=== PATIENT | female | born 1950 | race Caucasian/White ===

== ENCOUNTER 2018-07-12 13:25 | Inpatient (IN) | payer MEDICARE, SELFPAY ==
[2018-07-12] VITALS (7 sets, daily range): BP systolic 124–134; BP diastolic 66–71; PULSE 98–119; RESP 16–18; TEMP 37.1–39.2; O2SAT 98–100; BMI 25.9; BMI 26.4
--- NOTE | 2018-07-12 13:35 | CT_ITS ---
STUDY: CT ABDOMEN AND PELVIS WITH CONTRAST REASON FOR EXAM: Female, 68 years old. Dehydration. Diarrhea and fever. The patient is on chemotherapy. RADIATION DOSAGE (If Supplied By Facility): CTDIvol = ( 10.37 ) mGy, DLP = ( 602.99 ) mGycm TECHNIQUE: Transaxial images were obtained from the dome of the diaphragm to the symphysis pubis without oral contrast. 100 ml of Isovue 300 contrast was administered. Sagittal and coronal images were reconstructed. Individualized dose optimization techniques were used for this CT. COMPARISON: None. FINDINGS: The visualized lung bases are unremarkable. The visualized portions of the heart are within normal limits. There is decreased attenuation of the liver consistent with steatosis. There is a 1.1 cm x 0.7 cm rounded enhancing nodule in the superior lateral portion of the right lobe of the liver. This may represent a vascular malformation. The patient is status post cholecystectomy. A biliary stent is seen in the common bile duct down to its insertion into the duodenum. There is evidence of a pneumobilia within the hepatic ducts more prominent on the left side. There is mild splenomegaly. There is diffuse atrophy of the pancreas. There is no pancreatic ductal dilatation. Normal bilateral adrenal glands. Normal right kidney. Normal left kidney. Moderate sized hiatal hernia. Normal small intestine. There is mural thickening of the rectosigmoid colon down to the rectum. Colitis should be ruled out. The appendix is visualized and appears normal. Normal abdominal aorta. Normal inferior vena cava. Normal retroperitoneum. Normal urinary bladder. Small benign-appearing bilateral inguinal lymph nodes. There is a small umbilical hernia containing fat. There are degenerative changes of the visualized lumbar spine. CT/Abdomen/Pelvis W IV Cont ONLY IMPRESSION: Biliary stent in place with the pneumobilia. Diffuse fatty infiltration. Findings suggestive of a 0.7 cm x 1.1 cm rounded enhancing nodule in the right lobe of the liver as described most likely representing a vascular malformation. Diffuse atrophy of the pancreas with the dilated pancreatic duct. Findings suggestive of colitis of the rectosigmoid colon. Electronically Signed: Som Jamison MD at 15:25 EDT Tel [phone], Service support ,
--- NOTE | 2018-07-12 13:38 | ED.DCSUM_ITS ---
- ER Visit Summary Date of Service: 07/12/18 Chief Complaint: Fever, dehydration History of Present Illness: The patient is a 68 F with a recent diagnosis of pancreatic cancer who is status post her second chemotherapy presents to the emergency department with multiple complaints. Patient states that she is just felt lethargic since her last chemo. She was started on olanzapine and Ativan. She felt that that may been making it so she stopped taking her olanzapine last night, but she states that she does not feel herself. She has had a lot of abdominal cramping over the past 3 days with loose watery diarrhea. She is having 3 or 4 episodes a day. She states over the past 24 hours, the pain is mi grated to right lower quadrant with increasing cramping. She did have a fever today. She is unsure if she is neutropenic. The patient has had diverticulitis before and actually required a partial colectomy. Physical Examination: Vital signs reviewed General: Well-nourished, well-developed Head: Normocephalic, atraumatic Eyes: Pupils equal and reactive, extraocular muscles intact Neck, supple, no lymphadenopathy Heart: Regular rate and rhythm Respiratory: No distress, clear bilaterally Abdomen: Soft, mildly tender in the right lower quadrant without rebound or guarding, nondistended, no peritoneal signs Back: Nontender Extremities: Nontender, no edema, no cords Skin: Normal color no rash Neuro: Alert and oriented, no focal or lateralizing deficits Test Results: [] Emergency Department Course and Treatment: The patient presents with fever and tachycardia. She just completed her second round of chemotherapy 1 week ago. She has had diarrhea and does have abdominal tenderness evaluation. IV was established. Blood cultures were obtained. Screening labs do demonstrate pancytopenia with a neutrophil count of 800. The patient is a neutropenic with fever. Blood cultures were obtained. She was started on meropenem. Patient underwent CT of the abdomen and pelvis which does show colitis of the descending colon. I do feel this is likely the cause of her fever and in light of her immunosuppression, I do for the patient requires admission. She does have a lactic acidosis of 3.2. She was fluid resuscitated. She had marked improvement of her pain and was resting comfortably. She has not been hypotensive. The patient was discussed with the hospitalist and will be admitted. Treatment Plan: [] Disposition: 1. Admission Impression: 1. Neutropenic fever 2. Colitis 3. Sepsis This note was generated with [employer] dictation software. It may contain incorrect words, spelling, and punctuation that were not noted in review of the chart prior to signing ED Disposition - Plan for ED Patient: Chief Complaint: Diarrhea Referrals: Town Doctor,Out of [NON-STAFF] -
[2018-07-12] MEDS: Morphine 4 MG/ML Syringe IV (14:00)
[2018-07-12] MEDS: 0.9% Normal Saline 1,000 ML 1000 ML IV (14:00)
[2018-07-12 14:11] LABS: Absolute Lymphocyte Count 0.48 X10^3/ul (0.83-4.51); Absolute Neutrophil Count 0.3 X10^3/uL (2.0-7.7); Basophil# 0.01 X10^3/uL; Basophil% 1.2 % (0-1); Eosinophil# 0.01 X10^3/uL; Eosinophils% 1.2 % (0-5); Hematocrit 28.6 % (37-47); Hemoglobin 9.8 g/dl (12.0-15.0); Lymphocyte # 0.48 X10^3/ul (4.0); Lymphocyte % 57.1 % (19-41); Mean Corp Hgb Conc 34.3 g/gl (32-36); Mean Corpuscular Hgb 31.3 pg (27.0-32.0); Mean Corpuscular Volume 91.4 fL (81-99); Mean Platelet Vol. 10.2 fl (6.2-12.0); Monocyte# 0.05 X10^3/uL; Neutrophil # 0.29 X10^3/uL (2.7-7.7); Neutrophil % 34.5 % (47-70); Platelet Count 80 K/mm3 (150-450); RBC Distribution Width CV 13.8 % (11.6-14.6); RBC Distribution Width SD 45.1 fl (35.1-43.9); Red Blood Count 3.13 M/mm3 (4.2-5.4)
[2018-07-12 14:16] LABS: Differential Indicated SCAN CRITERIA MET; POSITIVE COUNT YES; POSITIVE DIFFERENTIAL YES; POSITIVE MORPHOLOGY YES; White Blood Count 0.8 K/mm3 (4.4-11.0)
--- NOTE | 2018-07-12 14:21 | ED.RN ---
MD AND PRIMARY RN NOTIFIED OF CRITICAL WBC VALUE CALLED FROM LAB.
[2018-07-12 14:23] LABS: AST(SGOT) 21 U/L (15-37); Alanine Aminotransfer ALT/SGPT 41 U/L (13-56); Alkaline Phosphatase 102 U/L (45-117); Anion Gap 9 (5-15); BUN 7 mg/dL (7-18); BUN/Creat Ratio 9.2 RATIO (10-20); Calcium,Total 7.7 mg/dL (8.5-10.1); Chloride 101 mmol/L (98-107); Creatinine, Serum 0.76 mg/dL (0.55-1.02); EST Glomerular Filtration Rate 80 mL/min (>60); Est Glom Filt Rate - Afr Amer 96 mL/min (>60); Globulin 2.9 g/dL (2.2-4.2); Glucose 123 mg/dL (74-106); Potassium 3.7 mmol/L (3.5-5.1); Protein, Total 5.9 g/dL (6.4-8.2); Sodium Level 133 mmol/L (136-145)
[2018-07-12 14:36] LABS: Lactic Acid 3.2 mmol/L (0.4-2.0)
--- NOTE | 2018-07-12 14:36 | ED.RN ---
SOLA FROM LAB CALLED WITH LACTIC ACID OF 3.2. NOTE LEFT FOR DR. TRAMMELL.
[2018-07-12 15:02] LABS: Mucous, Urine 0 SEEN /hpf (<or=2+); Squamous Epithelial Cells - UA 0 SEEN /hpf (5-10); White Blood Cells 0 SEEN /hpf (0-5)
[2018-07-12 15:03] LABS: Color, Urine Yellow (Yellow); Glucose, Dipstick Normal (Normal); Ketone-Dipstick Negative (Negative); Leukocyte Esterase-Dipstick 25 /ul (Negative); Nitrite-Dipstick Negative (Negative); Occult Blood-Urine 10 /ul (Negative); Protein-Dipstick Negative (Negative); Urine Bilirubin Dipstick Negative (Negative); Urine Clarity Clear (Clear); Urine Urobilinogen Normal (Normal)
[2018-07-12 15:09] LABS: Bacteria RARE /hpf (None Seen); Red Blood Cells-Urine 0-5 SEEN /hpf (0-5)
[2018-07-12] MEDS: 0.9% Normal Saline 1,000 ML 999 ML IV (15:17)
--- NOTE | 2018-07-12 15:32 | HP.PCM_ITS ---
Problem List (1) Fever Status: Acute (2) Diarrhea Status: Acute History of Present Illness Date of Admission: 07/12/18 Chief Complaint: fever, diarrhea The patient is a 68 year old F with a history of recently diagnosed pancreatic cancer status post pancreatic stent placement, diverticulosis s/p colectomy (12 inches of her colon removed), and hypertension. She is admitted by the ED on 07/12/2018 with complaint of fever, lethargy and diarrhea for couple of days duration. History was taken from patient and her and sons. According to them, diarrhea started about a week ago after she had her first chemotherapy session. It gradually got better and still became formed. However diarrhea started again last night and early this morning and was associated with scant blood on wiping himself. She was also noted to be febrile with has been seen temperature went up to a peak of around 101 Fahrenheit. They therefore decided coming to the ED. She also admitted to lethargy, but denied a cough, chest pain, or vomiting. Patient has a history of reflux and states she has been anorexic of late. She also had abdominal cramping with the diarrhea and states that is now mainly in the right lower quadrant. Temperature was 99.2 Fahrenheit, blood pressure was 124/71, pulse rate was 98 and respiratory rate was 17. Labs in the ED showed sodium of 133, lactic acid of 3.2, white cell count of 0.8 with absolute neutrophil count of 0.3. CT abdomen done in the ED showed biliary tent in place with pneumobilia and rectosigmoid colitis. She was started on IV meropenem in the ED and has been admitted for neutropenic fever and colitis. [] Past Medical History Allergies Penicillins [PCN] Allergy (Verified 07/12/18 13:29) Hives Home Medications: Ambulatory Orders Medication Instructions Recorded Cholecalciferol (Vitamin D3) 4,000 unit PO DAILY 07/12/18 [D3-2000] Lorazepam [Ativan] 1 mg PO Q8H PRN PRN 07/12/18 Olanzapine 10 mg PO QHS 07/12/18 Ondansetron [Zofran] 8 mg PO Q8H PRN PRN 07/12/18 Oxycodone HCl/Acetaminophen 1 - 2 tablet PO Q6H PRN PRN 07/12/18 [Percocet 5/325] Pantoprazole Sodium [Protonix] 40 mg PO BID 07/12/18 Smooth Eye Drops 1 drop EACH EYE DAILY 07/12/18 Surgical History: cholecystectomy, - - pancreatic stent placement Psychiatric History: No pertinent psych hx 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 Denies: Night Sweats Eyes: Reports: Blurred vision HEENT: Denies: Head Aches, Sinus Congestion, Sinus Drainage Cardiovascular: Denies: Chest Pain, Palpitations Respiratory: Denies: Cough, Shortness of Breath, Shortness of breath at rest, Shortness of breath upon exertion, Sputum production, Wheezing Gastrointestinal: Reports: Diarrhea, Dyspepsia, Hematochezia - scant blood on wiping herself, Nausea. Denies: Constipation, Melena, Vomiting Genitourinary: Denies: Dysuria Musculoskeletal: Denies: Joint Pain, Joint Tenderness Skin: Denies: Rash, Wounds Neurological: Denies: Numbness, Tingling, Focal weakness Psychiatric: Denies: Anxiety, Depression, Homicidal Ideations, Suicidal Ideations Hematologic/ Lymphatic: Denies: Easy Bruising, Easy Bleeding VTE Information - Inpt Only VTE Present on Admission: No VTE Mechan Device Prophylaxis: SCD's VTE Pharm Prophylaxis ordered?: No Reason prophylaxis not ordered:: Medical Contraindication - rectal bleeding due to diarrhea Patient Problems: Active and Suspected Problems Fever (Acute) Diarrhea (Acute) - Physical Exam General: Alert, Oriented x3, Cooperative, No apparent distress, Lethargic HEENT: Atraumatic, PERRLA, EOMI, Normocephalic Oral: Dry Mucosa Neck: Supple, No JVD, Negative Carotid Bruits Lungs: Clear to auscultation, Normal air movement, No rhonchi, No wheeze, No rales Cardiovascular: Regular rate, Regular Rhythm, Normal S1, Normal S2, No murmurs Abdomen: Bowel Sounds Present, Soft, Non Tender, Non-Distended, No Hepato- splenomegaly Extremities: No clubbing, No cyanosis, No edema, Capillary Refill Less than 3 Seconds Skin: No rashes, No breakdown Musculoskeletal: No Tenderness to Palpation of Joints or Extremities Lymphatic: No Cervical, Supraclavicular, or Inguinal Adenopathy Neurological: Cranial nerves II-XII grossly intact, Motor Exam 5/5 strength throughout Psych/Mental Status: Normal Affect, Appropriate, Alert and oriented to time, p lace, person, mood and affect Vital Signs Temp Pulse Resp BP Pulse Ox 99.2 F H 119 H 16 134/67 H 100 07/12/18 13:26 07/12/18 13:26 07/12/18 13:26 07/12/18 13:26 07/12/18 13:26 Weight: 133 lb Body Mass Index (BMI) 25.9 Laboratory Tests Past 24 Hrs 07/12/18 07/12/18 07/12/18 14:00 14:00 14:00 WBC 0.8 L* RBC 3.13 L Hgb 9.8 L Hct 28.6 L MCV 91.4 MCH 31.3 MCHC 34.3 RDW 13.8 RDW Differential 45.1 H Plt Count 80 L MPV 10.2 Immature Gran % (Auto) 0.000 Neut % (Auto) 34.5 L Lymph % (Auto) 57.1 H [place] % (Auto) 6.0 Eos % (Auto) 1.2 Baso % (Auto) 1.2 H Absolute Neuts (auto) 0.3 L Absolute Lymphs (auto) 0.48 L Total Counted Not Reportable Differential Comment COMMENT Diff Path Review May foll Sodium 133 L Potassium 3.7 Chloride 101 Carbon Dioxide 23.0 Anion Gap 9 BUN 7 Creatinine 0.76 Estim Creat Clear Calc 37.60 Est GFR (MDRD) Af Amer 96 Est GFR (MDRD) Non-Af 80 BUN/Creatinine Ratio 9.2 L Glucose 123 H Lactic Acid 3.2 H Calcium 7.7 L Total Bilirubin 0.60 AST 21 ALT 41 Alkaline Phosphatase 102 Total Protein 5.9 L Albumin 3.0 L Globulin 2.9 Albumin/Globulin Ratio 1.0 Urine Color Urine Clarity Urine pH Ur Specific [place] Urine Protein Urine Glucose (UA) Urine Ketones Urine Occult Blood Urine Nitrite Urine Bilirubin Urine Urobilinogen Ur Leukocyte Esterase Urine RBC Urine WBC Ur Squamous Epith Cells Urine Bacteria Urine Mucus 07/12/18 14:55 WBC RBC Hgb Hct MCV MCH MCHC RDW RDW Differential Plt Count MPV Immature Gran % (Auto) Neut % (Auto) Lymph % (Auto) [place] % (Auto) Eos % (Auto) Baso % (Auto) Absolute Neuts (auto) Absolute Lymphs (auto) Total Counted Differential Comment Diff Path Review Sodium Potassium Chloride Carbon Dioxide Anion Gap BUN Creatinine Estim Creat Clear Calc Est GFR (MDRD) Af Amer Est GFR (MDRD) Non-Af BUN/Creatinine Ratio Glucose Lactic Acid Calcium Total Bilirubin AST ALT Alkaline Phosphatase Total Protein Albumin Globulin Albumin/Globulin Ratio Urine Color Yellow Urine Clarity Clear Urine pH 7.0 Ur Specific [place] 1.010 Urine Protein Negative Urine Glucose (UA) Normal Urine Ketones Negative Urine Occult Blood 10 H Urine Nitrite Negative Urine Bilirubin Negative Urine Urobilinogen Normal Ur Leukocyte Esterase 25 H Urine RBC 0-5 SEEN Urine WBC 0 SEEN Ur Squamous Epith Cells 0 SEEN Urine Bacteria RARE Urine Mucus 0 SEEN Diagnostic Data Abdomen/Pelvis CT 07/12/18 13:35 IMPRESSION: Biliary stent in place with the pneumobilia. Diffuse fatty infiltration. Findings suggestive of a 0.7 cm x 1.1 cm rounded enhancing nodule in the right lobe of the liver as described most likely representing a vascular malformation. Diffuse atrophy of the pancreas with the dilated pancreatic duct. Findings suggestive of colitis of the rectosigmoid colon. Electronically Signed: Som Jamison MD at 15:25 EDT Tel [phone], Service support , Assessment/Plan All Active Problems Fever (Acute) Diarrhea (Acute) 68-year-old female with a history of recently diagnosed pancreatic cancer status post pancreatic stent placement, GERD and hypertension presents with a complaint of diarrhea for couple of days duration and fever of one days duration. 1. Neutropenic fever, likely due to colitis * Has had diarrhea at least one days duration. Started about a week ago and gradually got better but we could yesterday again. Was initially responsive to Imodium but it is not working now. * CT abdomen done in the ED showed rectosigmoid colitis. * WBC was 0.8 with absolute neutrophil count of 0.3. * Admit to PCU with telemetry * Was started on IV meropenem in the ED. Will continue IV meropenem 1 g q. 8 * Blood cultures obtained in the ED. Will check C. difficile. Patient does have a history of C. difficile in the past. * Rehydrated with IV fluid normal saline at 1 20 cc/h. Initial lactic acid was 3.2. Will repeat and monitor. * Start subcu Granix 300 mcg daily * oncology consult-Dr Hammonds * neutropenic precautions * 2. REctosigmoid colitis: * as documented under 1. * IVF resuscitation. * Check C Diff * 3. Lactic acidosis, likely due to dehydration from diarrhea * Initial lactic acid is 3.2. Will hydrate and repeat in 2 hours. * * 4. GERD: will put on IV PPI 40mg bid 5. Pancreatic cancer * Recently diagnosed within the past month. Had stent placed in pancreas and chemo port placed in [facility] within the last month. * Had last session of chemo ~ 1 week ago. * sees Dr Hammonds. Will place consult * DVT prophylaxis: Heparin GI prophylaxis: PPI CODE STATUS: Full code. * Patient and family counselled extensively about different types of code status, and differences between DNRCC, DNRCCA and full code. Patient elects to be full code. Total face to face time 18 mins * This note was generated with [employer] dictation software. It may contain incorrect words, spelling, and punctuation that were not noted in checking the note before signing. Code Visit Inpatient E&M: 91378 Init Hosp L3 Procedures: 37439 Advncd Care Plan 30 Min
--- NOTE | 2018-07-12 17:39 | PCM.CONS.B ---
Problem List (1) Neutropenic fever Status: Acute (2) Diarrhea Status: Acute (3) Pancreatic cancer metastasized to lung Status: Chronic - Consult Date of Consult: 07/12/[address] Cedillo regarding patient with neutropenic fever and metastatic pancreatic cancer on FOLFIRINOX chemotherapy. My final recommendation will be communicated to the nursing staff and also by electronic medical records. - Reason for Consult Neutropenic fever Diarrhea/stomatitis secondary to chemotherapy Pancreatic cancer. History of Present Illness Date of Admission: 07/12/18 Chief Complaint: fever, diarrhea The patient is a 68 year old F with a history of recently diagnosed pancreatic cancer with lung metastasis, status post pancreatic stent placement 3 weeks ago, diverticulosis s/p colectomy (12 inches of her colon removed), and hypertension. Started palliative chemotherapy with FOLFIRINOX 3 weeks ago. After receiving her second cycle of chemotherapy last week patient presented to emergency room with fever, diarrhea and increased lethargy. She is admitted by the ED on 07/12/2018 with complaint of fever, lethargy and diarrhea for couple of days duration. Patient did not have significant nausea vomiting but had cold induced neuropathy after first cycle of chemotherapy. Appetite is diminished but has no problem with stomatitis or diarrhea. She has no jaundice, abdominal pain or bloating. Go after her second cycle of chemotherapy chemotherapy session, she has increased diarrhea started again last night and early this morning and was associated with scant blood in her stool. He also has stomatitis. She was also noted a temperature of 101 F morning. She has increase lethargy, but denied a cough, chest pain, or vomiting. Patient has a history of reflux and states she has a very poor appetite. She also had abdominal cramping / pain in the right lower quadrant. Temperature was 99.2 Fahrenheit, blood pressure was 124/71, pulse rate was 98 and respiratory rate was 17. Labs in the ED showed sodium of 133, lactic acid of 3.2, white cell count of 0.8 with absolute neutrophil count of 0.3. CT abdomen done in the ED showed biliary tent in place with pneumobilia and rectosigmoid colitis. She was started on IV meropenem in the ED and transferred to the floor. Past Medical History Allergies Penicillins [PCN] Allergy (Verified 07/12/18 13:29) Hives Home Medications: Ambulatory Orders Medication Instructions Recorded Cholecalciferol (Vitamin D3) 4,000 unit PO DAILY 07/12/18 [D3-2000] Lorazepam [Ativan] 1 mg PO Q8H PRN PRN 07/12/18 Olanzapine 10 mg PO QHS 07/12/18 Ondansetron [Zofran] 8 mg PO Q8H PRN PRN 07/12/18 Oxycodone HCl/Acetaminophen 1 - 2 tablet PO Q6H PRN PRN 07/12/18 [Percocet 5/325] Pantoprazole Sodium [Protonix] 40 mg PO BID 07/12/18 Smooth Eye Drops 1 drop EACH EYE DAILY 07/12/18 Surgical History: cholecystectomy, - - pancreatic stent placement Psychiatric History: No pertinent psych hx 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 Denies: Night Sweats Eyes: Reports: Blurred vision HEENT: Denies: Head Aches, Sinus Congestion, Sinus Drainage Cardiovascular: Denies: Chest Pain, Palpitations Respiratory: Denies: Cough, Shortness of Breath, Shortness of breath at rest, Shortness of breath upon exertion, Sputum production, Wheezing Gastrointestinal: Reports: Diarrhea, Dyspepsia, Hematochezia - scant blood on wiping herself, Nausea. Denies: Constipation, Melena, Vomiting Genitourinary: Denies: Dysuria Musculoskeletal: Denies: Joint Pain, Joint Tenderness Skin: Denies: Rash, Wounds Neurological: Denies: Numbness, Tingling, Focal weakness Psychiatric: Denies: Anxiety, Depression, Homicidal Ideations, Suicidal Ideations Hematologic/ Lymphatic: Denies: Easy Bruising, Easy Bleeding VTE Information - Inpt Only VTE Present on Admission: No VTE Mechan Device Prophylaxis: SCD's VTE Pharm Prophylaxis ordered?: No Reason prophylaxis not ordered:: Medical Contraindication - rectal bleeding due to diarrhea Patient Problems: Active and Suspected Problems Neutropenic fever (Acute) Diarrhea (Acute) - Physical Exam General: Alert, Oriented x3, Cooperative, No apparent distress, Lethargic HEENT: Atraumatic, PERRLA, EOMI, Normocephalic Oral: Dry Mucosa Neck: Supple, No JVD, Negative Carotid Bruits Lungs: Clear to auscultation, Normal air movement, No rhonchi, No wheeze, No rales Cardiovascular: Regular rate, Regular Rhythm, Normal S1, Normal S2, No murmurs Abdomen: Bowel Sounds Present, Soft, Non Tender, Non-Distended, No Hepato-splenomegaly Extremities: No clubbing, No cyanosis, No edema, Capillary Refill Less than 3 Seconds Skin: No rashes, No breakdown Musculoskeletal: No Tenderness to Palpation of Joints or Extremities Lymphatic: No Cervical, Supraclavicular, or Inguinal Adenopathy Neurological: Cranial nerves II-XII grossly intact, Motor Exam 5/5 strength throughout Psych/Mental Status: Normal Affect, Appropriate, Alert and oriented to time, place, person, mood and affect Vital Signs Temp Pulse Resp BP Pulse Ox 99.2 F H 119 H 16 134/67 H 100 07/12/18 13:26 07/12/18 13:26 07/12/18 13:26 07/12/18 13:26 07/12/18 13:26 Weight: 133 lb Body Mass Index (BMI) 25.9 Laboratory Tests Past 24 Hrs 07/12/18 07/12/18 07/12/18 14:00 14:00 14:00 WBC 0.8 L* RBC 3.13 L Hgb 9.8 L Hct 28.6 L MCV 91.4 MCH 31.3 MCHC 34.3 RDW 13.8 RDW Differential 45.1 H Plt Count 80 L MPV 10.2 Immature Gran % (Auto) 0.000 Neut % (Auto) 34.5 L Lymph % (Auto) 57.1 H [place] % (Auto) 6.0 Eos % (Auto) 1.2 Baso % (Auto) 1.2 H Absolute Neuts (auto) 0.3 L Absolute Lymphs (auto) 0.48 L Total Counted Not Reportable Differential Comment COMMENT Diff Path Review May foll Sodium 133 L Potassium 3.7 Chloride 101 Carbon Dioxide 23.0 Anion Gap 9 BUN 7 Creatinine 0.76 Estim Creat Clear Calc 37.60 Est GFR (MDRD) Af Amer 96 Est GFR (MDRD) Non-Af 80 BUN/Creatinine Ratio 9.2 L Glucose 123 H Lactic Acid 3.2 H Calcium 7.7 L Total Bilirubin 0.60 AST 21 ALT 41 Alkaline Phosphatase 102 Total Protein 5.9 L Albumin 3.0 L Globulin 2.9 Albumin/Globulin Ratio 1.0 Urine Color Urine Clarity Urine pH Ur Specific [place] Urine Protein Urine Glucose (UA) Urine Ketones Urine Occult Blood Urine Nitrite Urine Bilirubin Urine Urobilinogen Ur Leukocyte Esterase Urine RBC Urine WBC Ur Squamous Epith Cells Urine Bacteria Urine Mucus 07/12/18 14:55 WBC RBC Hgb Hct MCV MCH MCHC RDW RDW Differential Plt Count MPV Immature Gran % (Auto) Neut % (Auto) Lymph % (Auto) [place] % (Auto) Eos % (Auto) Baso % (Auto) Absolute Neuts (auto) Absolute Lymphs (auto) Total Counted Differential Comment Diff Path Review Sodium Potassium Chloride Carbon Dioxide Anion Gap BUN Creatinine Estim Creat Clear Calc Est GFR (MDRD) Af Amer Est GFR (MDRD) Non-Af BUN/Creatinine Ratio Glucose Lactic Acid Calcium Total Bilirubin AST ALT Alkaline Phosphatase Total Protein Albumin Globulin Albumin/Globulin Ratio Urine Color Yellow Urine Clarity Clear Urine pH 7.0 Ur Specific [place] 1.010 Urine Protein Negative Urine Glucose (UA) Normal Urine Ketones Negative Urine Occult Blood 10 H Urine Nitrite Negative Urine Bilirubin Negative Urine Urobilinogen Normal Ur Leukocyte Esterase 25 H Urine RBC 0-5 SEEN Urine WBC 0 SEEN Ur Squamous Epith Cells 0 SEEN Urine Bacteria RARE Urine Mucus 0 SEEN Diagnostic Data Abdomen/Pelvis CT 07/12/18 13:35 IMPRESSION: Biliary stent in place with the pneumobilia. Diffuse fatty infiltration. Findings suggestive of a 0.7 cm x 1.1 cm rounded enhancing nodule in the right lobe of the liver as described most likely representing a vascular malformation. Diffuse atrophy of the pancreas with the dilated pancreatic duct. Findings suggestive of colitis of the rectosigmoid colon. Electronically Signed: Som Jamison MD at 15:25 EDT Tel [phone], Service support , Assessment/Plan All Active Problems Fever (Acute) Diarrhea (Acute) Metastatic pancreatic cancer (Chronic) 68-year-old female with metastatic pancreatic cancer status post pancreatic stent placement, GERD and hypertension presents with a complaint of diarrhea for couple of days duration and fever neutropenia. CT scan finding is concerning for possible colitis. 1. Neutropenic fever Plan: -Continue meropenem & add vancomycin -Consult pharmacy for vancomycin dosing -Blood and urine cultures pending. -Stool for lactoferrin and C. difficile toxin 2. Diarrhea and stomatitis secondary to chemotherapy-treatment of toxicity of FOLFIRINOX Plan: -Liquid diet -Start Sandostatin 100mcg sq 8 hours -Continue PPI and start BMX solution 1 teaspoon every 4 hours as needed for pain. 3. Metastatic pancreatic cancer Plan: -Compare CT scan and follow CA-19-9 level -Follow-up with Dr. Hammonds to discuss treatment plans -Dose reduction of chemotherapy or changing to a different regimen cc: Dr. Christiano Hammonds; Dr. Mirian Cedillo
[2018-07-12 18:05] LABS: Reflex Lactate? Y
[2018-07-12] MEDS: 0.9% Normal Saline 1,000 ML 100 ML IV (18:48)
[2018-07-12 19:28] LABS: Lactic Acid 2.5 mmol/L (0.4-2.0)
[2018-07-12] MEDS: TBO-FILGRASTIM 300 MCG/0.5 ML ML SC (19:49)
[2018-07-12] MEDS: BMX LIQUID 180 ML PO (19:52)
--- NOTE | 2018-07-12 20:46 | PCM.RX.CS ---
Consult Pharmacy has been consulted to manage selected antiobiotic: Vancomycin Type of Consult: New start Suspected Infection: Bacteremia Prior Doses of Antibiotics Received/Current Regimen: None Labs: Sodium 133 mmol/L (136-145) L 07/12/18 14:00 Potassium 3.7 mmol/L (3.5-5.1) 07/12/18 14:00 Chloride 101 mmol/L (98-107) 07/12/18 14:00 Carbon Dioxide 23.0 mmol/L (21.0-32.0) 07/12/18 14:00 Anion Gap 9 (5-15) 07/12/18 14:00 BUN 7 mg/dL (7-18) 07/12/18 14:00 Creatinine 0.76 mg/dL (0.55-1.02) 07/12/18 14:00 Est GFR (MDRD) Af Amer 96 mL/min (>60) 07/12/18 14:00 Est GFR (MDRD) Non-Af 80 mL/min (>60) 07/12/18 14:00 BUN/Creatinine Ratio 9.2 RATIO (10-20) L 07/12/18 14:00 Glucose 123 mg/dL (74-106) H 07/12/18 14:00 Weight used for dosin kg Estimated Creatinine Clearance: 37ml/min Goal Trough: 15-20 mcg/mL Pharmacy Plan for Drug Dosing: Recommend loading dose of Vancomycin 25mg/kg or 1500mg IV x1 starting 07/12/18 at 1930. Maintenance dose of Vancomycin 750mg IV q24h starting 07/13/18 at 1900. Trough before the 3rd dose of the maintenance dose. Pharmacy Service will continue to monitor and adjust dosing as required. Follow-Up Labs: Trough Vancomycin Labs to be done on [date and time ordered]: trough level 07/15/18 at 1830
[2018-07-12] MEDS: LORazepam 1 MG Tablet PO (22:28)
[2018-07-12] MEDS: Octreotide 0.1 MG/ML ML SC (22:28)
[2018-07-12] MEDS: Ondansetron 8 MG Tablet PO (22:29)
[2018-07-12] MEDS: 0.9% NaCl VAD Flush 10 ML IV ×2 (22:30→22:40)
[2018-07-12 23:52] LABS: Lactic Acid 2.1 mmol/L (0.4-2.0)
[2018-07-13] VITALS (10 sets, daily range): BP systolic 108–136; BP diastolic 64–75; PULSE 92–108; RESP 15–20; TEMP 36.9–37.5; O2SAT 94–100
[2018-07-13 03:06] LABS: Reflex Lactate? Y
[2018-07-13 04:10] LABS: Absolute Lymphocyte Count 0.77 X10^3/ul (0.83-4.51); Absolute Neutrophil Count 0.1 X10^3/uL (2.0-7.7); Eosinophil# 0.01 X10^3/uL; Hematocrit 26.4 % (37-47); Hemoglobin 8.8 g/dl (12.0-15.0); Lymphocyte # 0.77 X10^3/ul (4.0); Lymphocyte % 75.5 % (19-41); Mean Corp Hgb Conc 33.3 g/gl (32-36); Mean Corpuscular Hgb 30.2 pg (27.0-32.0); Mean Corpuscular Volume 90.7 fL (81-99); Mean Platelet Vol. 9.7 fl (6.2-12.0); Monocyte# 0.17 X10^3/uL; Monocyte% 16.7 % (0-10); Neutrophil # 0.05 X10^3/uL (2.7-7.7); Neutrophil % 4.8 % (47-70); Platelet Count 66 K/mm3 (150-450); RBC Distribution Width SD 46.5 fl (35.1-43.9); Red Blood Count 2.91 M/mm3 (4.2-5.4)
[2018-07-13 04:13] LABS: Anion Gap 9 (5-15); BUN 5 mg/dL (7-18); BUN/Creat Ratio 7.5 RATIO (10-20); Calcium,Total 7.5 mg/dL (8.5-10.1); Chloride 109 mmol/L (98-107); Creatinine, Serum 0.66 mg/dL (0.55-1.02); EST Glomerular Filtration Rate 93 mL/min (>60); Est Glom Filt Rate - Afr Amer 113 mL/min (>60); Glucose 120 mg/dL (74-106); Potassium 3.7 mmol/L (3.5-5.1); Sodium Level 138 mmol/L (136-145)
[2018-07-13 04:16] LABS: Lactic Acid 1.7 mmol/L (0.4-2.0)
[2018-07-13 04:21] LABS: Differential Indicated SCAN CRITERIA MET; POSITIVE COUNT YES; POSITIVE DIFFERENTIAL YES; POSITIVE MORPHOLOGY YES
[2018-07-13 05:15] LABS: Atypical Lymphocyte RARE %; Differential Comment SCANNED
[2018-07-13] MEDS: 0.9% Normal Saline 1,000 ML 100 ML IV (05:24)
[2018-07-13] MEDS: Octreotide 0.1 MG/ML ML SC ×3 (05:33→21:37)
--- NOTE | 2018-07-13 08:22 | PCM.PN.BLA ---
Progress Note Oncology progress note: Patient has no fever, nausea or vomiting. Mouth sore improved. She has no cough shortness of breath. She continues to have occasional abdominal cramps and diarrhea. She has diarrhea almost immediately after she eats. Occasional rectal bleeding. No urine symptoms. Microbiology Past 72 Hours 07/12/18 23:05 Stool C. difficile DNA Amplification - Final 07/12/18 23:05 Stool Stool Lactoferrin - Final Laboratory Results 07/12/18 14:00: WBC 0.8 L*, RBC 3.13 L, Hgb 9.8 L, Hct 28.6 L, MCV 91.4, MCH 31.3, MCHC 34.3, RDW 13.8, RDW Differential 45.1 H, Plt Count 80 L, MPV 10.2, Immature Gran % (Auto) 0.000, Neut % (Auto) 34.5 L, Lymph % (Auto) 57.1 H, [place] % (Auto) 6.0, Eos % (Auto) 1.2, Baso % (Auto) 1.2 H, Absolute Neuts (auto) 0.3 L, Absolute Lymphs (auto) 0.48 L, Total Counted Not Reportable, Differential Comment COMMENT, Diff Path Review February07/12/18 14:00: Sodium 133 L, Potassium 3.7, Chloride 101, Carbon Dioxide 23.0, Anion Gap 9, BUN 7, Creatinine 0.76, Estim Creat Clear Calc 37.60, Est GFR (MDRD) Af Amer 96, Est GFR (MDRD) Non-Af 80, BUN/Creatinine Ratio 9.2 L, Glucose 123 H, Calcium 7.7 L, Total Bilirubin 0.60, AST 21, ALT 41, Alkaline Phosphatase 102, Total Protein 5.9 L, Albumin 3.0 L, Globulin 2.9, Albumin/Globulin Ratio 1.0 07/12/18 14:00: Lactic Acid 3.2 H 07/12/18 14:55: Urine Color Yellow, Urine Clarity Clear, Urine pH 7.0, Ur Specific [place] 1.010, Urine Protein Negative, Urine Glucose (UA) Normal, Urine Ketones Negative, Urine Occult Blood 10 H, Urine Nitrite Negative, Urine Bilirubin Negative, Urine Urobilinogen Normal, Ur Leukocyte Esterase 25 H, Urine RBC 0-5 SEEN, Urine WBC 0 SEEN, Ur Squamous Epith Cells 0 SEEN, Urine Bacteria RARE, Urine Mucus 0 SEEN 07/12/18 18:45: Lactic Acid 2.5 H 07/12/18 22:45: Lactic Acid 2.1 H 07/13/18 03:26: WBC 1.0 L*, RBC 2.91 L, Hgb 8.8 L, Hct 26.4 L, MCV 90.7, MCH 30.2, MCHC 33.3, RDW 14.0, RDW Differential 46.5 H, Plt Count 66 L, MPV 9.7, Immature Gran % (Auto) 2.000 H, Neut % (Auto) 4.8 L, Lymph % (Auto) 75.5 H, [place] % (Auto) 16.7 H, Eos % (Auto) 1.0, Baso % (Auto) 0.0, Absolute Neuts (auto) 0.1 L, Absolute Lymphs (auto) 0.77 L, Total Counted Not Reportable, Differential Comment SCANNED, Diff Path Review May foll, Atypical Lymphocytes RARE 07/13/18 03:26: Sodium 138, Potassium 3.7, Chloride 109 H, Carbon Dioxide 20.0 L, Anion Gap 9, BUN 5 L, Creatinine 0.66, Estim Creat Clear Calc 37.60, Est GFR (MDRD) Af Amer 113, Est GFR (MDRD) Non-Af 93, BUN/Creatinine Ratio 7.5 L, Glucose 120 H, Calcium 7.5 L 07/13/18 03:26: Lactic Acid 1.7 Assessment/Plan All Active Problems 68-year-old female with metastatic pancreatic cancer status post pancreatic stent placement, GERD and hypertension presents with a complaint of diarrhea for couple of days duration and fever neutropenia. CT scan finding is concerning for possible colitis. 1. Neutropenic fever -Patient is afebrile and WBC slowly improving. -Blood and urine cultures pending. -Stool for lactoferrin and C. difficile toxin negative Plan: -Continue meropenem & add vancomycin -Consult pharmacy for vancomycin dosing 2. Diarrhea and stomatitis secondary to chemotherapy-treatment of toxicity of FOLFIRINOX Plan: -Keep n.p.o. or change to full liquid diet. -Start Sandostatin 100mcg sq 8 hours -Continue PPI and start BMX solution 1 teaspoon every 4 hours as needed for pain. 3. Metastatic pancreatic cancer Plan: -Compare CT scan and follow CA-19-9 level -Follow-up with Dr. Hammonds to discuss treatment plans this week -Dose reduction of chemotherapy or changing to a different chemotherapy regimen? cc: Dr. Christiano Hammonds; Dr. Mirian Cedillo
[2018-07-13] MEDS: TBO-FILGRASTIM 300 MCG/0.5 ML ML SC (09:43)
--- NOTE | 2018-07-13 10:05 | CASEMGMT ---
SEE [facility] ASSESS LINK: D/C PLAN: HOME [facility] Face to Face with patient for initial transition planning/care coordination assessment. RN JELENA introduced self and role at [facility]. Patient sitting in chair, alert and oriented. Patient willing to participate in assessment and is able to answer all questions appropriately. Pt reports that she used to be able to drive and handle home management tasks until recent diagnoses of Cancer and chemo and that she has not had the energy or felt well enough to take care of those things like before. She reports her is of great support and takes care of everything for her now. Care providers, pharmacy, and demographics verified. Pt wishes to discharge home, denies need for home health at this time. Pt states he has no further needs or concerns at this time. CM to follow for discharge planning needs that may arise. Luz Marina ALVAREZN [facility]
--- NOTE | 2018-07-13 11:49 | PCM.HP.ID ---
Problem List (1) Neutropenic fever Status: Acute Reason for Consult: neutropenic fever Consulted by: Dr. Balbuena History of Present Illness: The patient is a 68 year old F with metastatic pancreatic cancer, recently started on chemo via port. Last dose was 07/04, developed diarrhea after with some associated cramping, going about 3-4 times a day. Sx associated with fatigue, not feeling well. Was taking imodium with some improvement. Sx worsened, had some blood with wiping after BM, came to ED with fever of 102.6. Started on meropenem, vanc added. Oncology following. Has remote h/o cdiff around time of diverticulitis and partial colectomy. Feeling better today. Full ROS Performed and neg except as noted above. - Medical History Past Medical History (Chronic Problems): Chronic Problems Pancreatic cancer metastasized to lung (Chronic) Allergies/Adverse Reactions: Allergies Penicillins [PCN] Allergy (Verified 07/12/18 13:29) Hives Home Medications: Ambulatory Orders Medication Instructions Recorded Cholecalciferol (Vitamin D3) 4,000 unit PO DAILY 07/12/18 [D3-2000] Lorazepam [Ativan] 1 mg PO Q8H PRN PRN 07/12/18 Olanzapine 10 mg PO QHS 07/12/18 Ondansetron [Zofran] 8 mg PO Q8H PRN PRN 07/12/18 Oxycodone HCl/Acetaminophen 1 - 2 tablet PO Q6H PRN PRN 07/12/18 [Percocet 5/325] Pantoprazole Sodium [Protonix] 40 mg PO BID 07/12/18 Smooth Eye Drops 1 drop EACH EYE DAILY 07/12/18 - Social History SMOKING STATUS:: Never smoker Vital Signs Temp Pulse Resp BP Pulse Ox 98.5 F 108 H 16 114/65 100 07/13/18 09:30 07/13/18 10:57 07/13/18 09:30 07/13/18 09:30 07/13/18 09:30 Oxygen Delivery Method Room Air Weight: 61.326 kg Body Mass Index (BMI) 26.4 Microbiology Past 72 Hours 07/12/18 23:05 C. difficile DNA Amplification - Final Stool 07/12/18 23:05 Stool Lactoferrin - Final Stool Laboratory Tests Past 24 Hrs 07/12/18 07/12/18 07/12/18 14:00 14:00 14:00 WBC 0.8 L* RBC 3.13 L Hgb 9.8 L Hct 28.6 L MCV 91.4 MCH 31.3 MCHC 34.3 RDW 13.8 RDW Differential 45.1 H Plt Count 80 L MPV 10.2 Immature Gran % (Auto) 0.000 Neut % (Auto) 34.5 L Lymph % (Auto) 57.1 H [place] % (Auto) 6.0 Eos % (Auto) 1.2 Baso % (Auto) 1.2 H Absolute Neuts (auto) 0.3 L Absolute Lymphs (auto) 0.48 L Total Counted Not Reportable Differential Comment COMMENT Diff Path Review May foll Atypical Lymphocytes Sodium 133 L Potassium 3.7 Chloride 101 Carbon Dioxide 23.0 Anion Gap 9 BUN 7 Creatinine 0.76 Estim Creat Clear Calc 37.60 Est GFR (MDRD) Af Amer 96 Est GFR (MDRD) Non-Af 80 BUN/Creatinine Ratio 9.2 L Glucose 123 H Lactic Acid 3.2 H Calcium 7.7 L Total Bilirubin 0.60 AST 21 ALT 41 Alkaline Phosphatase 102 Total Protein 5.9 L Albumin 3.0 L Globulin 2.9 Albumin/Globulin Ratio 1.0 Urine Color Urine Clarity Urine pH Ur Specific [place] Urine Protein Urine Glucose (UA) Urine Ketones Urine Occult Blood Urine Nitrite Urine Bilirubin Urine Urobilinogen Ur Leukocyte Esterase Urine RBC Urine WBC Ur Squamous Epith Cells Urine Bacteria Urine Mucus 07/12/18 07/12/18 07/12/18 14:55 18:45 22:45 WBC RBC Hgb Hct MCV MCH MCHC RDW RDW Differential Plt Count MPV Immature Gran % (Auto) Neut % (Auto) Lymph % (Auto) [place] % (Auto) Eos % (Auto) Baso % (Auto) Absolute Neuts (auto) Absolute Lymphs (auto) Total Counted Differential Comment Diff Path Review Atypical Lymphocytes Sodium Potassium Chloride Carbon Dioxide Anion Gap BUN Creatinine Estim Creat Clear Calc Est GFR (MDRD) Af Amer Est GFR (MDRD) Non-Af BUN/Creatinine Ratio Glucose Lactic Acid 2.5 H 2.1 H Calcium Total Bilirubin AST ALT Alkaline Phosphatase Total Protein Albumin Globulin Albumin/Globulin Ratio Urine Color Yellow Urine Clarity Clear Urine pH 7.0 Ur Specific [place] 1.010 Urine Protein Negative Urine Glucose (UA) Normal Urine Ketones Negative Urine Occult Blood 10 H Urine Nitrite Negative Urine Bilirubin Negative Urine Urobilinogen Normal Ur Leukocyte Esterase 25 H Urine RBC 0-5 SEEN Urine WBC 0 SEEN Ur Squamous Epith Cells 0 SEEN Urine Bacteria RARE Urine Mucus 0 SEEN 07/13/18 07/13/18 07/13/18 03:26 03:26 03:26 WBC 1.0 L* RBC 2.91 L Hgb 8.8 L Hct 26.4 L MCV 90.7 MCH 30.2 MCHC 33.3 RDW 14.0 RDW Differential 46.5 H Plt Count 66 L MPV 9.7 Immature Gran % (Auto) 2.000 H Neut % (Auto) 4.8 L Lymph % (Auto) 75.5 H [place] % (Auto) 16.7 H Eos % (Auto) 1.0 Baso % (Auto) 0.0 Absolute Neuts (auto) 0.1 L Absolute Lymphs (auto) 0.77 L Total Counted Not Reportable Differential Comment SCANNED Diff Path Review May foll Atypical Lymphocytes RARE Sodium 138 Potassium 3.7 Chloride 109 H Carbon Dioxide 20.0 L Anion Gap 9 BUN 5 L Creatinine 0.66 Estim Creat Clear Calc 37.60 Est GFR (MDRD) Af Amer 113 Est GFR (MDRD) Non-Af 93 BUN/Creatinine Ratio 7.5 L Glucose 120 H Lactic Acid 1.7 Calcium 7.5 L Total Bilirubin AST ALT Alkaline Phosphatase Total Protein Albumin Globulin Albumin/Globulin Ratio Urine Color Urine Clarity Urine pH Ur Specific [place] Urine Protein Urine Glucose (UA) Urine Ketones Urine Occult Blood Urine Nitrite Urine Bilirubin Urine Urobilinogen Ur Leukocyte Esterase Urine RBC Urine WBC Ur Squamous Epith Cells Urine Bacteria Urine Mucus - Other Studies Radiology: [] reviewed Other Studies: [] Route of nutrition/ use of supplements: [] Nutritional Intake: [] IV Site: [] Bowie Catheter: [] - Physical Exam General: Alert, Oriented x3, Cooperative, No apparent distress HEENT: Atraumatic, PERRLA, EOMI, - - shallow apthous ulcers on tongue Neck: Supple, No Nodes Lungs: Clear to auscultation, Normal air movement Cardiovascular: Regular rate, Regular Rhythm Abdomen: Soft, Non Tender, Non-Distended Extremities: No edema Skin: No rashes IV Site: Central Line, without redness Musculoskeletal: No Tenderness to Palpation of Joints or Extremities Neurological: Cranial nerves II-XII grossly intact - Assessment/Plan Antibiotics: [] Assessment/Plan: [] Active and Suspected Problems Fever (Acute) Diarrhea (Acute) Neutropenic fever (Acute) Neutropenic fever after chemo for pancreatic cancer - bcx pending. Remains pancytopenic. Oncology following. CT shows colitis. Port in place. Cdiff was neg. Lactic acidosis improved. Cont vanc/meropenem. If bcx are neg, plan will be to stop vanc. Will follow, thank you.
--- NOTE | 2018-07-13 13:21 | PCM.PROGNOTE ---
<Jamie Crystal - Last Filed: 07/13/18 13:21> Patient Problems: Active and Suspected Problems Fever (Acute) Diarrhea (Acute) Neutropenic fever (Acute) Subjective: Pt continues to have crampy abdominal pain followed by loose stools - still with pink blood as of this AM. No subjective fever or chills. Subjectively overall feels that she is improving. Mouth pain bilaterally improved. Hx lichen planus. No SOB/cough. No Nausea/vomiting. - Physical Exam General: Alert, Oriented x3, Cooperative HEENT: Atraumatic, PERRLA, EOMI, Normocephalic Neck: Supple, No JVD, Negative Carotid Bruits Lungs: Clear to auscultation, Normal air movement Cardiovascular: Regular rate, No murmurs Abdomen: Bowel Sounds Present, Soft, Tender - diffusely Extremities: No edema, Capillary Refill Less than 3 Seconds Skin: No rashes, No breakdown Musculoskeletal: No Tenderness to Palpation of Joints or Extremities Neurological: Cranial nerves II-XII grossly intact Psych/Mental Status: Normal Affect, Appropriate, Alert and oriented to time, place, person, mood and affect Vital Signs Temp Pulse Resp BP Pulse Ox 98.5 F 108 H 16 114/65 100 07/13/18 09:30 07/13/18 10:57 07/13/18 09:30 07/13/18 09:30 07/13/18 09:30 Oxygen Delivery Method Room Air Weight: 135 lb 3.2 oz Body Mass Index (BMI) 26.4 Intake and Output for Last 24 Hours 07/11/18 07/12/18 07/13/18 23:59 23:59 23:59 Intake Total 2100 Output Total 150 / 150 Balance 1950 Microbiology Past 72 Hours 07/12/18 23:05 C. difficile DNA Amplification - Final Stool 07/12/18 23:05 Stool Lactoferrin - Final Stool Laboratory Tests Past 24 Hrs 07/12/18 07/12/18 07/12/18 14:00 14:00 14:00 WBC 0.8 L* RBC 3.13 L Hgb 9.8 L Hct 28.6 L MCV 91.4 MCH 31.3 MCHC 34.3 RDW 13.8 RDW Differential 45.1 H Plt Count 80 L MPV 10.2 Immature Gran % (Auto) 0.000 Neut % (Auto) 34.5 L Lymph % (Auto) 57.1 H [place] % (Auto) 6.0 Eos % (Auto) 1.2 Baso % (Auto) 1.2 H Absolute Neuts (auto) 0.3 L Absolute Lymphs (auto) 0.48 L Total Counted Not Reportable Differential Comment COMMENT Diff Path Review May foll Atypical Lymphocytes Sodium 133 L Potassium 3.7 Chloride 101 Carbon Dioxide 23.0 Anion Gap 9 BUN 7 Creatinine 0.76 Estim Creat Clear Calc 37.60 Est GFR (MDRD) Af Amer 96 Est GFR (MDRD) Non-Af 80 BUN/Creatinine Ratio 9.2 L Glucose 123 H Lactic Acid 3.2 H Calcium 7.7 L Total Bilirubin 0.60 AST 21 ALT 41 Alkaline Phosphatase 102 Total Protein 5.9 L Albumin 3.0 L Globulin 2.9 Albumin/Globulin Ratio 1.0 Urine Color Urine Clarity Urine pH Ur Specific [place] Urine Protein Urine Glucose (UA) Urine Ketones Urine Occult Blood Urine Nitrite Urine Bilirubin Urine Urobilinogen Ur Leukocyte Esterase Urine RBC Urine WBC Ur Squamous Epith Cells Urine Bacteria Urine Mucus 07/12/18 07/12/18 07/12/18 14:55 18:45 22:45 WBC RBC Hgb Hct MCV MCH MCHC RDW RDW Differential Plt Count MPV Immature Gran % (Auto) Neut % (Auto) Lymph % (Auto) [place] % (Auto) Eos % (Auto) Baso % (Auto) Absolute Neuts (auto) Absolute Lymphs (auto) Total Counted Differential Comment Diff Path Review Atypical Lymphocytes Sodium Potassium Chloride Carbon Dioxide Anion Gap BUN Creatinine Estim Creat Clear Calc Est GFR (MDRD) Af Amer Est GFR (MDRD) Non-Af BUN/Creatinine Ratio Glucose Lactic Acid 2.5 H 2.1 H Calcium Total Bilirubin AST ALT Alkaline Phosphatase Total Protein Albumin Globulin Albumin/Globulin Ratio Urine Color Yellow Urine Clarity Clear Urine pH 7.0 Ur Specific [place] 1.010 Urine Protein Negative Urine Glucose (UA) Normal Urine Ketones Negative Urine Occult Blood 10 H Urine Nitrite Negative Urine Bilirubin Negative Urine Urobilinogen Normal Ur Leukocyte Esterase 25 H Urine RBC 0-5 SEEN Urine WBC 0 SEEN Ur Squamous Epith Cells 0 SEEN Urine Bacteria RARE Urine Mucus 0 SEEN 07/13/18 07/13/18 07/13/18 03:26 03:26 03:26 WBC 1.0 L* RBC 2.91 L Hgb 8.8 L Hct 26.4 L MCV 90.7 MCH 30.2 MCHC 33.3 RDW 14.0 RDW Differential 46.5 H Plt Count 66 L MPV 9.7 Immature Gran % (Auto) 2.000 H Neut % (Auto) 4.8 L Lymph % (Auto) 75.5 H [place] % (Auto) 16.7 H Eos % (Auto) 1.0 Baso % (Auto) 0.0 Absolute Neuts (auto) 0.1 L Absolute Lymphs (auto) 0.77 L Total Counted Not Reportable Differential Comment SCANNED Diff Path Review May foll Atypical Lymphocytes RARE Sodium 138 Potassium 3.7 Chloride 109 H Carbon Dioxide 20.0 L Anion Gap 9 BUN 5 L Creatinine 0.66 Estim Creat Clear Calc 37.60 Est GFR (MDRD) Af Amer 113 Est GFR (MDRD) Non-Af 93 BUN/Creatinine Ratio 7.5 L Glucose 120 H Lactic Acid 1.7 Calcium 7.5 L Total Bilirubin AST ALT Alkaline Phosphatase Total Protein Albumin Globulin Albumin/Globulin Ratio Urine Color Urine Clarity Urine pH Ur Specific [place] Urine Protein Urine Glucose (UA) Urine Ketones Urine Occult Blood Urine Nitrite Urine Bilirubin Urine Urobilinogen Ur Leukocyte Esterase Urine RBC Urine WBC Ur Squamous Epith Cells Urine Bacteria Urine Mucus Medical Necessity - Tobacco Use Smoking Status: Never smoker Assessment/Plan All Active Problems Fever (Acute) Diarrhea (Acute) Neutropenic fever (Acute) 1. Acute colitis in setting of neutropenia - ID consulted. CT of the abdomen demonstrates biliary stent with pneumobilia, diffuse fatty infiltration, nodule of the right lobe of the lung, atrophy of the pancreas, colitis of the rectosigmoid colon. UA neg. Tmax 102.6. Ellen/Vanc. Lactic acidosis resolved. Continue IV PPI BID. 2. Neutropenia 2/2 chemo - Dr. Lozano following. Pt on granix. Abs neuts have decreased. trend. 3. Pancytopenia - continue to trend blood counts, no transfusion at this time 4. St4 pancreatic cancer mets to lung - o/p follow up with Dr. Hammonds. DVT ppx: SCDs. DC planning: Pending resolution of GI bleeding, improvement in cell lines. This patient was seen by Jamie Crystal PA-C under the supervision of Doctor Sree. <Tejinder Balbuena - Last Filed: 07/13/18 15:28> Subjective: The patient had chemo last Marisol, on 07/05. Started having fever yesterday, low-grade in 100s. She is having high frequency of loose bowel movement with abdominal cramps, every 5-10 minutes. She is on Sandostatin but is still not helping her. Stool for C. difficile negative. - Physical Exam General: Alert, Oriented x3, Cooperative HEENT: Atraumatic, PERRLA, EOMI, Normocephalic Oral: Dry Mucosa Neck: Supple, No JVD, Negative Carotid Bruits Lungs: Clear to auscultation, Normal air movement Cardiovascular: Regular rate, Regular Rhythm, Normal S1, Normal S2, No murmurs Abdomen: Bowel Sounds Present, Soft, Non Tender, Non-Distended, Hyperactive Bowel Sounds, Tender Extremities: No edema, Capillary Refill Less than 3 Seconds Skin: No rashes, No breakdown Musculoskeletal: No Tenderness to Palpation of Joints or Extremities Neurological: Cranial nerves II-XII grossly intact, Neuro grossly intact Psych/Mental Status: Normal Affect, Appropriate Vital Signs Temp Pulse Resp BP Pulse Ox 98.5 F 108 H 16 114/65 100 07/13/18 09:30 07/13/18 10:57 07/13/18 09:30 07/13/18 09:30 07/13/18 09:30 Oxygen Delivery Method Room Air Weight: 135 lb 3.2 oz Body Mass Index (BMI) 26.4 Intake and Output for Last 24 Hours 07/11/18 07/12/18 07/13/18 23:59 23:59 23:59 Intake Total 2100 Output Total 150 / 150 Balance 1950 Microbiology Past 72 Hours 07/12/18 23:05 C. difficile DNA Amplification - Final Stool 07/12/18 23:05 Stool Lactoferrin - Final Stool Laboratory Tests Past 24 Hrs 07/12/18 07/12/18 07/12/18 14:00 14:55 18:45 WBC RBC Hgb Hct MCV MCH MCHC RDW RDW Differential Plt Count MPV Immature Gran % (Auto) Neut % (Auto) Lymph % (Auto) [place] % (Auto) Eos % (Auto) Baso % (Auto) Absolute Neuts (auto) Absolute Lymphs (auto) Total Counted Differential Comment Diff Path Review Reviewed Atypical Lymphocytes Sodium Potassium Chloride Carbon Dioxide Anion Gap BUN Creatinine Estim Creat Clear Calc Est GFR (MDRD) Af Amer Est GFR (MDRD) Non-Af BUN/Creatinine Ratio Glucose Lactic Acid 2.5 H Calcium Urine Color Yellow Urine Clarity Clear Urine pH 7.0 Ur Specific [place] 1.010 Urine Protein Negative Urine Glucose (UA) Normal Urine Ketones Negative Urine Occult Blood 10 H Urine Nitrite Negative Urine Bilirubin Negative Urine Urobilinogen Normal Ur Leukocyte Esterase 25 H Urine RBC 0-5 SEEN Urine WBC 0 SEEN Ur Squamous Epith Cells 0 SEEN Urine Bacteria RARE Urine Mucus 0 SEEN 07/12/18 07/13/18 07/13/18 22:45 03:26 03:26 WBC 1.0 L* RBC 2.91 L Hgb 8.8 L Hct 26.4 L MCV 90.7 MCH 30.2 MCHC 33.3 RDW 14.0 RDW Differential 46.5 H Plt Count 66 L MPV 9.7 Immature Gran % (Auto) 2.000 H Neut % (Auto) 4.8 L Lymph % (Auto) 75.5 H [place] % (Auto) 16.7 H Eos % (Auto) 1.0 Baso % (Auto) 0.0 Absolute Neuts (auto) 0.1 L Absolute Lymphs (auto) 0.77 L Total Counted Not Reportable Differential Comment SCANNED Diff Path Review May foll Atypical Lymphocytes RARE Sodium 138 Potassium 3.7 Chloride 109 H Carbon Dioxide 20.0 L Anion Gap 9 BUN 5 L Creatinine 0.66 Estim Creat Clear Calc 37.60 Est GFR (MDRD) Af Amer 113 Est GFR (MDRD) Non-Af 93 BUN/Creatinine Ratio 7.5 L Glucose 120 H Lactic Acid 2.1 H Calcium 7.5 L Urine Color Urine Clarity Urine pH Ur Specific [place] Urine Protein Urine Glucose (UA) Urine Ketones Urine Occult Blood Urine Nitrite Urine Bilirubin Urine Urobilinogen Ur Leukocyte Esterase Urine RBC Urine WBC Ur Squamous Epith Cells Urine Bacteria Urine Mucus 07/13/18 03:26 WBC RBC Hgb Hct MCV MCH MCHC RDW RDW Differential Plt Count MPV Immature Gran % (Auto) Neut % (Auto) Lymph % (Auto) [place] % (Auto) Eos % (Auto) Baso % (Auto) Absolute Neuts (auto) Absolute Lymphs (auto) Total Counted Differential Comment Diff Path Review Atypical Lymphocytes Sodium Potassium Chloride Carbon Dioxide Anion Gap BUN Creatinine Estim Creat Clear Calc Est GFR (MDRD) Af Amer Est GFR (MDRD) Non-Af BUN/Creatinine Ratio Glucose Lactic Acid 1.7 Calcium Urine Color Urine Clarity Urine pH Ur Specific [place] Urine Protein Urine Glucose (UA) Urine Ketones Urine Occult Blood Urine Nitrite Urine Bilirubin Urine Urobilinogen Ur Leukocyte Esterase Urine RBC Urine WBC Ur Squamous Epith Cells Urine Bacteria Urine Mucus Assessment/Plan This patient was seen in conjunction with Jamie MITCHELL. I have independently interviewed and examined the patient and reviewed pertinent history, examination findings, laboratory and plan of management. I have reviewed the note and agree with the documented findings with the few additional points. In brief, patient is admitted for acute colitis with febrile neutropenia after about 1 week off chemotherapy for stage IV pancreatic cancer. Patient had biliary stent. CT abdomen showed rectosigmoid colitis. Stool for C. difficile negative. Stool lactoferrin positive. Patient has diffuse mucositis and stomatitis. On BMX solution every 4 hours. I have discussed my assessment with Jamie MITCHELL and orders have been reviewed. Microbiology Past 72 Hours 07/12/18 23:05 Stool C. difficile DNA Amplification - Final 07/12/18 23:05 Stool Stool Lactoferrin - Final Laboratory Results 07/12/18 14:00: Diff Path Review Reviewed 07/12/18 14:55: Urine Color Yellow, Urine Clarity Clear, Urine pH 7.0, Ur Specific [place] 1.010, Urine Protein Negative, Urine Glucose (UA) Normal, Urine Ketones Negative, Urine Occult Blood 10 H, Urine Nitrite Negative, Urine Bilirubin Negative, Urine Urobilinogen Normal, Ur Leukocyte Esterase 25 H, Urine RBC 0-5 SEEN, Urine WBC 0 SEEN, Ur Squamous Epith Cells 0 SEEN, Urine Bacteria RARE, Urine Mucus 0 SEEN 07/12/18 18:45: Lactic Acid 2.5 H 07/12/18 22:45: Lactic Acid 2.1 H 07/13/18 03:26: WBC 1.0 L*, RBC 2.91 L, Hgb 8.8 L, Hct 26.4 L, MCV 90.7, MCH 30.2, MCHC 33.3, RDW 14.0, RDW Differential 46.5 H, Plt Count 66 L, MPV 9.7, Immature Gran % (Auto) 2.000 H, Neut % (Auto) 4.8 L, Lymph % (Auto) 75.5 H, [place] % (Auto) 16.7 H, Eos % (Auto) 1.0, Baso % (Auto) 0.0, Absolute Neuts (auto) 0.1 L, Absolute Lymphs (auto) 0.77 L, Total Counted Not Reportable, Differential Comment SCANNED, Diff Path Review May foll, Atypical Lymphocytes RARE 07/13/18 03:26: Sodium 138, Potassium 3.7, Chloride 109 H, Carbon Dioxide 20.0 L, Anion Gap 9, BUN 5 L, Creatinine 0.66, Estim Creat Clear Calc 37.60, Est GFR (MDRD) Af Amer 113, Est GFR (MDRD) Non-Af 93, BUN/Creatinine Ratio 7.5 L, Glucose 120 H, Calcium 7.5 L 07/13/18 03:26: Lactic Acid 1.7 Code Visit Inpatient E&M: 12261 Subs Hosp L3
--- NOTE | 2018-07-13 14:38 | CHAPLAIN ---
Type of Pastoral Visit _x__ Initial Visit ___ Follow-up Visit ___ On-call Visit ___ General Patient Visit ___ Spiritual Assessment ___ Family Conference ___ Bereavement ___ Rapid Response ___ Code Blue ___ Other (describe below) Pastoral Care Referral From _x__ Patient ___ Family ___ Nurse ___ Physician ___ Aboriginal Liaison Officer ___ Mortgage Underwriter ___ Other (describe below) Sacrament/Intervention _x__ Active listening ___ Anointing ___ Scientologist ___ Bereavement ___ Communion _x__ Maria Dolores exploration ___ _x__ Life review _x__ Prayer ___ Reconciliation ___ Sacrament of Sick _x__ Supportive presence ___ Wedding ___ Other (describe below) Pastoral Comments patient expressed desire to talk to someone else besides her family members about her illness and her feelings about it; pt describes herself as a born again [employer]ian but struggling with hearing from God during this time; pt says that she has been a healthy person all her life and has had plans for living and being with family; pt is dealing with loss of dreams for life and how this illness impacts her whole family; pt is wondering out loud about her choices to continue this treatment, try a different treatment, or stop treatments; conversation about the ways God responds/intervenes to our situation and our prayers; pt was tearful at times; pt given time to talk and also to be grieving; patient was welcoming of prayer support and future visits; spouse of pt had gone out of room and was not present during this conversation; patient is a member of the [employer] in [place]
[2018-07-13 14:56] LABS: Pathologist Review Reviewed
[2018-07-13 14:59] LABS: Pathologist Review Reviewed
[2018-07-13] MEDS: NYSTATIN 500,000 UNIT/5 ML UDC 500000 UNIT PO ×2 (18:05→21:32)
[2018-07-13] MEDS: LORazepam 1 MG Tablet PO (21:50)
[2018-07-14] VITALS (9 sets, daily range): BP systolic 108–138; BP diastolic 55–66; PULSE 87–101; RESP 16; TEMP 36.8–37.6; O2SAT 96–99
[2018-07-14 05:45] LABS: Anion Gap 10 (5-15); BUN 2 mg/dL (7-18); BUN/Creat Ratio 3.3 RATIO (10-20); Calcium,Total 7.6 mg/dL (8.5-10.1); Chloride 108 mmol/L (98-107); Creatinine, Serum 0.61 mg/dL (0.55-1.02); EST Glomerular Filtration Rate 102 mL/min (>60); Est Glom Filt Rate - Afr Amer 124 mL/min (>60); Glucose 104 mg/dL (74-106); Sodium Level 141 mmol/L (136-145)
[2018-07-14] MEDS: 0.9% NaCl VAD Flush 10 ML IV ×3 (05:56→20:18)
[2018-07-14 05:58] LABS: Absolute Lymphocyte Count 1.18 X10^3/ul (0.83-4.51); Eosinophil# 0.03 X10^3/uL; Eosinophils% 1.8 % (0-5); Hematocrit 25.2 % (37-47); Hemoglobin 8.4 g/dl (12.0-15.0); Lymphocyte # 1.18 X10^3/ul (4.0); Lymphocyte % 70.2 % (19-41); Mean Corp Hgb Conc 33.3 g/gl (32-36); Mean Corpuscular Hgb 30.3 pg (27.0-32.0); Mean Platelet Vol. 9.4 fl (6.2-12.0); Monocyte# 0.45 X10^3/uL; Monocyte% 26.8 % (0-10); Neutrophil # 0.02 X10^3/uL (2.7-7.7); Neutrophil % 1.2 % (47-70); Platelet Count 75 K/mm3 (150-450); RBC Distribution Width CV 14.1 % (11.6-14.6); RBC Distribution Width SD 46.6 fl (35.1-43.9); Red Blood Count 2.77 M/mm3 (4.2-5.4); White Blood Count 1.7 K/mm3 (4.4-11.0)
[2018-07-14] MEDS: Octreotide 0.1 MG/ML ML SC ×3 (06:02→23:10)
[2018-07-14 06:08] LABS: Differential Indicated SCAN CRITERIA MET; POSITIVE COUNT NO; POSITIVE DIFFERENTIAL YES; POSITIVE MORPHOLOGY YES
[2018-07-14 06:49] LABS: Differential Comment SCANNED; Platelet Estimate SLT DEC (ADEQ); Toxic Granulation 2+
[2018-07-14] MEDS: NYSTATIN 500,000 UNIT/5 ML UDC 500000 UNIT PO ×4 (09:07→23:08)
[2018-07-14] MEDS: TBO-FILGRASTIM 480 MCG/0.8 ML ML SC (09:10)
--- NOTE | 2018-07-14 10:16 | PCM.PN.ID ---
Patient Problems: Active and Suspected Problems Fever (Acute) Diarrhea (Acute) Neutropenic fever (Acute) Subjective: Feeling not much better. Chills yesterday. Still with diarrhea, some abd cramping. - Physical Exam General: Alert, Cooperative, No apparent distress Lungs: Clear to auscultation, Normal air movement Cardiovascular: Regular rate, Regular Rhythm Abdomen: Soft, Non Tender, Non-Distended Skin: No rashes Vital Signs Temp Pulse Resp BP Pulse Ox 98.2 F 93 16 109/61 99 07/14/18 09:03 07/14/18 09:03 07/14/18 09:03 07/14/18 09:03 07/14/18 09:03 Oxygen Delivery Method Room Air Weight: 61.33 kg Body Mass Index (BMI) 26.4 Intake and Output for Last 24 Hours 07/12/18 07/13/18 07/14/18 23:59 23:59 23:59 Intake Total 2101 / 210 3666 / 3666 282 / 282 Output Total 150 / 150 Balance 1950 / 1950 3666 / 3666 282 / 282 Microbiology Past 72 Hours 07/12/18 23:05 C. difficile DNA Amplification - Final Stool 07/12/18 23:05 Stool Lactoferrin - Final Stool Laboratory Tests Past 24 Hrs 07/12/18 07/13/18 07/14/18 14:00 03:26 05:22 WBC 1.7 L RBC 2.77 L Hgb 8.4 L Hct 25.2 L MCV 91.0 MCH 30.3 MCHC 33.3 RDW 14.1 RDW Differential 46.6 H Plt Count 75 L MPV 9.4 Immature Gran % (Auto) 0.000 Neut % (Auto) 1.2 L Lymph % (Auto) 70.2 H [place] % (Auto) 26.8 H Eos % (Auto) 1.8 Baso % (Auto) 0.0 Absolute Neuts (auto) 0.0 L Absolute Lymphs (auto) 1.18 Total Counted Not Reportable Differential Comment SCANNED Diff Path Review Reviewed Reviewed Toxic Granulation 2+ Platelet Estimate SLT DEC Sodium Potassium Chloride Carbon Dioxide Anion Gap BUN Creatinine Estim Creat Clear Calc Est GFR (MDRD) Af Amer Est GFR (MDRD) Non-Af BUN/Creatinine Ratio Glucose Calcium 07/14/18 05:22 WBC RBC Hgb Hct MCV MCH MCHC RDW RDW Differential Plt Count MPV Immature Gran % (Auto) Neut % (Auto) Lymph % (Auto) [place] % (Auto) Eos % (Auto) Baso % (Auto) Absolute Neuts (auto) Absolute Lymphs (auto) Total Counted Differential Comment Diff Path Review Toxic Granulation Platelet Estimate Sodium 141 Potassium 3.0 L Chloride 108 H Carbon Dioxide 23.0 Anion Gap 10 BUN 2 L Creatinine 0.61 Estim Creat Clear Calc 37.60 Est GFR (MDRD) Af Amer 124 Est GFR (MDRD) Non-Af 102 BUN/Creatinine Ratio 3.3 L Glucose 104 Calcium 7.6 L Medical Necessity - Tobacco Use Smoking Status: Never smoker Route of nutrition/ use of supplements: [] Nutritional Intake: [] IV Site: [] Bowie Catheter: [] - Assessment/Plan Antibiotics: [] Assessment/Plan: [] Active and Suspected Problems Fever (Acute) Diarrhea (Acute) Neutropenic fever (Acute) Neutropenic fever after chemo for pancreatic cancer - bcx neg so far. Remains pancytopenic. Oncology following. CT shows colitis. Port in place. Cdiff was neg; stool pcr pending. Lactic acidosis improved. Cont meropenem. Will stop vanc. Will follow
--- NOTE | 2018-07-14 11:55 | PCM.PROGNOTE ---
<Beatriz He - Last Filed: 07/14/18 12:14> Patient Problems: Active and Suspected Problems Pancytopenia (Acute) Fever (Acute) Diarrhea (Acute) Neutropenic fever (Acute) Subjective: Patient seen and examined. Denies fever, chills. Complains of continued diarrhea. No other complaints. - Physical Exam General: Alert, Oriented x3, Cooperative, No apparent distress HEENT: Atraumatic, PERRLA, EOMI, Normocephalic Neck: Supple, No JVD, Negative Carotid Bruits Lungs: Clear to auscultation, Normal air movement Cardiovascular: Regular rate, No murmurs Abdomen: Bowel Sounds Present, Soft, Non-Distended, Tender - Generalized Extremities: No clubbing, No cyanosis, No edema, Capillary Refill Less than 3 Seconds Skin: No rashes, No breakdown Musculoskeletal: No Tenderness to Palpation of Joints or Extremities Neurological: Cranial nerves II-XII grossly intact, Neuro grossly intact Psych/Mental Status: Normal Affect, Appropriate Vital Signs Temp Pulse Resp BP Pulse Ox 98.2 F 87 16 109/61 99 07/14/18 09:03 07/14/18 11:00 07/14/18 09:03 07/14/18 09:03 07/14/18 09:03 Oxygen Delivery Method Room Air Weight: 135 lb 3.352 oz Body Mass Index (BMI) 26.4 Intake and Output for Last 24 Hours 07/12/18 07/13/18 07/14/18 23:59 23:59 23:59 Intake Total 2101 / 2101 3666 / 3666 282 / 282 Output Total 150 / 150 Balance 1950 / 1950 3666 / 3666 282 / 282 Microbiology Past 72 Hours 07/12/18 23:05 C. difficile DNA Amplification - Final Stool 07/12/18 23:05 Stool Lactoferrin - Final Stool Laboratory Tests Past 24 Hrs 07/12/18 07/13/18 07/14/18 14:00 03:26 05:22 WBC 1.7 L RBC 2.77 L Hgb 8.4 L Hct 25.2 L MCV 91.0 MCH 30.3 MCHC 33.3 RDW 14.1 RDW Differential 46.6 H Plt Count 75 L MPV 9.4 Immature Gran % (Auto) 0.000 Neut % (Auto) 1.2 L Lymph % (Auto) 70.[address] [place] % (Auto) 26.8 H Eos % (Auto) 1.8 Baso % (Auto) 0.0 Absolute Neuts (auto) 0.0 L Absolute Lymphs (auto) 1.18 Total Counted Not Reportable Differential Comment SCANNED Diff Path Review Reviewed Reviewed Toxic Granulation 2+ Platelet Estimate SLT DEC Sodium Potassium Chloride Carbon Dioxide Anion Gap BUN Creatinine Estim Creat Clear Calc Est GFR (MDRD) Af Amer Est GFR (MDRD) Non-Af BUN/Creatinine Ratio Glucose Calcium 07/14/18 05:22 WBC RBC Hgb Hct MCV MCH MCHC RDW RDW Differential Plt Count MPV Immature Gran % (Auto) Neut % (Auto) Lymph % (Auto) [place] % (Auto) Eos % (Auto) Baso % (Auto) Absolute Neuts (auto) Absolute Lymphs (auto) Total Counted Differential Comment Diff Path Review Toxic Granulation Platelet Estimate Sodium 141 Potassium 3.0 L Chloride 108 H Carbon Dioxide 23.0 Anion Gap 10 BUN 2 L Creatinine 0.61 Estim Creat Clear Calc 37.60 Est GFR (MDRD) Af Amer 124 Est GFR (MDRD) Non-Af 102 BUN/Creatinine Ratio 3.3 L Glucose 104 Calcium 7.6 L Medical Necessity - Tobacco Use Smoking Status: Never smoker Assessment/Plan All Active Problems Pancytopenia (Acute) Fever (Acute) Diarrhea (Acute) Neutropenic fever (Acute) 1. Acute colitis secondary to chemotherapy regimen with associated fever- ID consulted. Continue meropenem empirically. Blood cultures show no growth so far, final pending. C. difficile negative. CT of abdomen consistent with colitis. Stool for enteric bacteriology pending. Continue IV PPI. 2. Pancytopenia secondary to chemotherapy regimen-oncology following. Patient is on Granix. WBC improved. 3. Hypokalemia-secondary to GI losses result of 1. Replace. Trend BMP. 4. Stage IV pancreatic cancer with metastasis to lung- Follows with Dr. Hammonds. 5. GERD- Continue PPI. DVT prophylaxis-SCDs. This patient was seen by MURPHY Sanderson under the supervision of Dr. Balbuena. <Tejinder Balbuena - Last Filed: 07/14/18 15:41> Subjective: Seen and examined. Patient diarrhea has improved. Started on soft diet. Blood and diarrhea is also decreased. Having less abdominal cramps as compared to yesterday. - Physical Exam General: Alert, Oriented x3, Cooperative HEENT: Atraumatic, PERRLA, EOMI, Normocephalic Neck: Supple, No JVD, Negative Carotid Bruits Lungs: Clear to auscultation, Normal air movement Cardiovascular: Regular rate, Regular Rhythm, Normal S1, No murmurs Abdomen: Bowel Sounds Present, Soft, Non Tender, Non-Distended Extremities: No edema, Capillary Refill Less than 3 Seconds Skin: No rashes, No breakdown Musculoskeletal: No Tenderness to Palpation of Joints or Extremities Neurological: Cranial nerves II-XII grossly intact Psych/Mental Status: Normal Affect, Appropriate Vital Signs Temp Pulse Resp BP Pulse Ox 98.7 F 96 16 115/55 L 98 07/14/18 15:00 07/14/18 15:00 07/14/18 15:00 07/14/18 15:00 07/14/18 15:00 Oxygen Delivery Method Room Air Weight: 135 lb 3.352 oz Body Mass Index (BMI) 26.4 Intake and Output for Last 24 Hours 07/12/18 07/13/18 07/14/18 23:59 23:59 23:59 Intake Total 2101 / 2101 3666 / 3666 823 / 823 Output Total 150 / 150 Balance 1950 / 1950 3666 / 3666 823 / 823 Microbiology Past 72 Hours 07/12/18 14:00 Blood Culture - Preliminary Blood Culture (Wb) - Port No growth in 48 hours. 07/12/18 14:32 Blood Culture - Preliminary Blood Culture (Wb) - Anticubital Right No growth in 48 hours. 07/13/18 16:25 Enteric Bacteriology - Final Stool 07/12/18 23:05 C. difficile DNA Amplification - Final Stool 07/12/18 23:05 Stool Lactoferrin - Final Stool Laboratory Tests Past 24 Hrs 07/14/18 07/14/18 05:22 05:22 WBC 1.7 L RBC 2.77 L Hgb 8.4 L Hct 25.2 L MCV 91.0 MCH 30.3 MCHC 33.3 RDW 14.1 RDW Differential 46.6 H Plt Count 75 L MPV 9.4 Immature Gran % (Auto) 0.000 Neut % (Auto) 1.2 L Lymph % (Auto) 70.[address] [place] % (Auto) 26.8 H Eos % (Auto) 1.8 Baso % (Auto) 0.0 Absolute Neuts (auto) 0.0 L Absolute Lymphs (auto) 1.18 Total Counted Not Reportable Differential Comment SCANNED Toxic Granulation 2+ Platelet Estimate SLT DEC Sodium 141 Potassium 3.0 L Chloride 108 H Carbon Dioxide 23.0 Anion Gap 10 BUN 2 L Creatinine 0.61 Estim Creat Clear Calc 37.60 Est GFR (MDRD) Af Amer 124 Est GFR (MDRD) Non-Af 102 BUN/Creatinine Ratio 3.3 L Glucose 104 Calcium 7.6 L Assessment/Plan This patient was seen in conjunction with Beatriz LAURENT. I have independently interviewed and examined the patient and reviewed pertinent history, examination findings, laboratory and plan of management. I have reviewed the note and agree with the documented findings with the few additional points. In brief, patient is admitted for acute colitis with febrile neutropenia after about 1 week off chemotherapy for stage IV pancreatic cancer. Patient had biliary stent. CT abdomen showed rectosigmoid colitis. Stool for C. difficile negative. Stool for bacteriology panel negative. Stool lactoferrin positive. Patient has diffuse mucositis and stomatitis. On BMX solution every 4 hours. Patient was seen by Dr. Hammonds patient. WBC count 1.7 thousand ANC 0.0, platelet count 75,000 hemoglobin 8.4. Mild hypokalemia. Dr. Hammonds ordered Granix. I have discussed my assessment with Beatriz LAURENT and orders have been reviewed. Code Visit Inpatient E&M: 98140 Subs Hosp L3
--- NOTE | 2018-07-14 12:11 | PCM.PROGNOTE ---
Patient Problems: Active and Suspected Problems Fever (Acute) Diarrhea (Acute) Neutropenic fever (Acute) Subjective: feeling better overall. She has occasional nausea after receiving antibiotics. However she feels like she would like to advance her diet. Some abdominal cramping when she has a bowel movement. Frequency of stools is slowing. She says she is having less blood in the bowel movements. No abdominal bloating or distention. No jaundice. - Physical Exam General: Alert, Oriented x3 Oral: Moist Mucosa, - - Small ulcer left lateral tongue. Lungs: Clear to auscultation Cardiovascular: Regular Rhythm Abdomen: Bowel Sounds Present, Soft, - - Mild diffuce tenderness. Extremities: No edema Skin: No rashes Vital Signs Temp Pulse Resp BP Pulse Ox 98.2 F 87 16 109/61 99 07/14/18 09:03 07/14/18 11:00 07/14/18 09:03 07/14/18 09:03 07/14/18 09:03 Oxygen Delivery Method Room Air Weight: 61.33 kg Body Mass Index (BMI) 26.4 Intake and Output for Last 24 Hours 07/12/18 07/13/18 07/14/18 23:59 23:59 23:59 Intake Total 2101 / 2101 3666 / 3666 823 / 823 Output Total 150 / 150 Balance 1950 / 1950 3666 / 3666 823 / 823 Microbiology Past 72 Hours 07/12/18 23:05 C. difficile DNA Amplification - Final Stool 07/12/18 23:05 Stool Lactoferrin - Final Stool Laboratory Tests Past 24 Hrs 07/12/18 07/13/18 07/14/18 14:00 03:26 05:22 WBC 1.7 L RBC 2.77 L Hgb 8.4 L Hct 25.2 L MCV 91.0 MCH 30.3 MCHC 33.3 RDW 14.1 RDW Differential 46.6 H Plt Count 75 L MPV 9.4 Immature Gran % (Auto) 0.000 Neut % (Auto) 1.2 L Lymph % (Auto) 70.2 H Treasure % (Auto) 26.8 H Eos % (Auto) 1.8 Baso % (Auto) 0.0 Absolute Neuts (auto) 0.0 L Absolute Lymphs (auto) 1.18 Total Counted Not Reportable Differential Comment SCANNED Diff Path Review Reviewed Reviewed Toxic Granulation 2+ Platelet Estimate SLT DEC Sodium Potassium Chloride Carbon Dioxide Anion Gap BUN Creatinine Estim Creat Clear Calc Est GFR (MDRD) Af Amer Est GFR (MDRD) Non-Af BUN/Creatinine Ratio Glucose Calcium 07/14/18 05:22 WBC RBC Hgb Hct MCV MCH MCHC RDW RDW Differential Plt Count MPV Immature Gran % (Auto) Neut % (Auto) Lymph % (Auto) Treasure % (Auto) Eos % (Auto) Baso % (Auto) Absolute Neuts (auto) Absolute Lymphs (auto) Total Counted Differential Comment Diff Path Review Toxic Granulation Platelet Estimate Sodium 141 Potassium 3.0 L Chloride 108 H Carbon Dioxide 23.0 Anion Gap 10 BUN 2 L Creatinine 0.61 Estim Creat Clear Calc 37.60 Est GFR (MDRD) Af Amer 124 Est GFR (MDRD) Non-Af 102 BUN/Creatinine Ratio 3.3 L Glucose 104 Calcium 7.6 L Medical Necessity - Tobacco Use Smoking Status: Never smoker Assessment/Plan All Active Problems Fever (Acute) Diarrhea (Acute) Neutropenic fever (Acute) 1. NF Assessment: -ANC lower. -Afebrile and hemodynamically stable. -BC negative thus far. -Mild nausea following meropenem administration. Plan: -Continue Meropenem. -Granix ordered. 2. Diarrhea. Assessment: -C diff negative, but enteric pathogen panel pending. -Did not have this degree of diarrhea with cycle #1. -Responding now to octreotide. Plan: -Advance diet. -Continue IVFs. -Continue octreotide. 3. Pancytopenia. Assessment: -No clear indication for RBC transfusion. -Platelet count improving. Plan: -Continue GSCF as above. -Monitor counts. -Okay for medical prophylaxis DVT. 4. Metastatic pancreas cancer. Assessment: -Primary tumor the pancreas was only appreciated on endoscopic ultrasound. -Biopsy-proven lung metastases. Plan: -Discussed with patient today and last night via telephone that once the acute toxicities and side effects being addressed during this hospitalization have resolved, will obtain CT chest outpatient next week and then decide on further therapy with FOLFIRINOX at dose reduction or change in therapy to Abraxane/gemcitabine.
--- NOTE | 2018-07-14 15:37 | NURSING ---
report given to Tameka FAM who is assuming care of pt at this time
[2018-07-14] MEDS: Loperamide 2 MG Capsule PO ×2 (16:30→20:36)
[2018-07-14] MEDS: oxyCODONE 5 MG Tablet PO ×2 (16:50→23:04)
[2018-07-14 20:55] LABS: Anion Gap 9 (5-15); BUN 1 mg/dL (7-18); BUN/Creat Ratio 1.6 RATIO (10-20); Calcium,Total 7.7 mg/dL (8.5-10.1); Chloride 105 mmol/L (98-107); Creatinine, Serum 0.62 mg/dL (0.55-1.02); EST Glomerular Filtration Rate 100 mL/min (>60); Est Glom Filt Rate - Afr Amer 121 mL/min (>60); Glucose 117 mg/dL (74-106); Potassium 2.8 mmol/L (3.5-5.1); Sodium Level 137 mmol/L (136-145)
[2018-07-14 22:36] LABS: Magnesium 1.7 mg/dL (1.6-2.6)
[2018-07-14] MEDS: LORazepam 1 MG Tablet PO (23:03)
[2018-07-15] VITALS (11 sets, daily range): BP systolic 102–125; BP diastolic 60–75; PULSE 81–114; RESP 16–18; TEMP 36.6–37.6; O2SAT 97–99
[2018-07-15] MEDS: 0.9% Normal Saline 1,000 ML 100 ML IV ×3 (00:32→19:52)
[2018-07-15] MEDS: 0.9% NaCl VAD Flush 10 ML IV ×3 (02:42→06:38)
[2018-07-15] MEDS: oxyCODONE 5 MG Tablet PO ×3 (05:47→16:29)
[2018-07-15] MEDS: Octreotide 0.1 MG/ML ML SC ×3 (05:48→22:25)
[2018-07-15 07:00] LABS: Differential Indicated MANUAL DIFF; Hematocrit 26.3 % (37-47); Hemoglobin 9.1 g/dl (12.0-15.0); Mean Corp Hgb Conc 34.6 g/gl (32-36); Mean Corpuscular Volume 89.5 fL (81-99); Mean Platelet Vol. 10.3 fl (6.2-12.0); POSITIVE COUNT NO; POSITIVE DIFFERENTIAL NO; POSITIVE MORPHOLOGY YES; Platelet Count 84 K/mm3 (150-450); RBC Distribution Width SD 45.8 fl (35.1-43.9); Red Blood Count 2.94 M/mm3 (4.2-5.4)
[2018-07-15 07:12] LABS: Anion Gap 8 (5-15); BUN 1 mg/dL (7-18); BUN/Creat Ratio 1.8 RATIO (10-20); Calcium,Total 7.4 mg/dL (8.5-10.1); Chloride 106 mmol/L (98-107); Creatinine, Serum 0.57 mg/dL (0.55-1.02); EST Glomerular Filtration Rate 111 mL/min (>60); Est Glom Filt Rate - Afr Amer 135 mL/min (>60); Glucose 97 mg/dL (74-106); Magnesium 2.3 mg/dL (1.6-2.6); Potassium 3.5 mmol/L (3.5-5.1); Sodium Level 139 mmol/L (136-145)
[2018-07-15 07:30] LABS: Neutrophil-Segmented 38 % (47-70); Total Cells Counted 100 (MANUAL DIFF)
[2018-07-15 07:31] LABS: Anisocytosis 1+; Blast 1 % (0-0); Differential Comment SCAN; Eosinophil 1 % (0-5); Hypochromasia 1+; Lymphocyte 27 % (19-41); Metamyelocyte 9 % (0-1); Microcytosis 1+; Monocyte 5 % (0-10); Myelocyte 1 (0-0); Neutrophil-Band 17 % (0-5); Platelet Estimate ADEQUATE (ADEQ); Promyelocyte 1 (0-0)
[2018-07-15 07:33] LABS: Absolute Lymphocyte Count 2.69 X10^3/ul (0.83-4.51); Absolute Neutrophil Count 5.5 X10^3/uL (2.0-7.7)
--- NOTE | 2018-07-15 07:41 | PCM.PROGNOTE ---
Patient Problems: Active and Suspected Problems Pancytopenia (Acute) Fever (Acute) Diarrhea (Acute) Neutropenic fever (Acute) Subjective: Had 2 hour period yesterday with no BM. Several watery BMs through the night. No longer getting nausea after antibiotics. Mouth sores prevented her from eating yesterday. Received K and Mg replacement. No fever. - Physical Exam General: Alert, Oriented x3 Oral: Moist Mucosa, - - Ulcer left tongue same. Lungs: Clear to auscultation Cardiovascular: Regular Rhythm Abdomen: Bowel Sounds Present, Soft Extremities: No edema Vital Signs Temp Pulse Resp BP Pulse Ox 98.8 F 90 16 116/60 97 07/15/18 06:00 07/15/18 06:54 07/15/18 06:00 07/15/18 06:00 07/15/18 06:00 Oxygen Delivery Method Room Air Weight: 61.33 kg Body Mass Index (BMI) 26.4 Intake and Output for Last 24 Hours 07/13/18 07/14/18 07/15/18 23:59 23:59 23:59 Intake Total 3666 / 3666 1063 / 1063 510 / 510 Balance 3666 / 3666 1063 / 1063 510 / 510 Microbiology Past 72 Hours 07/12/18 14:00 Blood Culture - Preliminary Blood Culture (Wb) - Port No growth in 48 hours. 07/12/18 14:32 Blood Culture - Preliminary Blood Culture (Wb) - Anticubital Right No growth in 48 hours. 07/13/18 16:25 Enteric Bacteriology - Final Stool 07/12/18 23:05 C. difficile DNA Amplification - Final Stool 07/12/18 23:05 Stool Lactoferrin - Final Stool Laboratory Tests Past 24 Hrs 07/14/18 07/14/18 07/15/18 20:15 20:15 06:37 WBC 10.0 RBC 2.94 L Hgb 9.1 L Hct 26.3 L MCV 89.5 MCH 31.0 MCHC 34.6 RDW 14.0 RDW Differential 45.8 H Plt Count 84 L MPV 10.3 Neut % (Auto) Not Reportable Absolute Neuts (auto) 5.5 Absolute Lymphs (auto) 2.69 Total Counted 100 Neutrophils % (Manual) 38 L Band Neutrophils % 17 H Lymphocytes % (Manual) 27 Monocytes % (Manual) 5 Eosinophils % (Manual) 1 Metamyelocytes % 9 H Myelocytes % 1 H Promyelocytes % 1 H Blast Cells % 1 H* Differential Comment SCAN Diff Path Review May foll Platelet Estimate ADEQUATE Hypochromasia 1+ Anisocytosis 1+ Microcytosis 1+ Sodium 137 Potassium 2.8 L Chloride 105 Carbon Dioxide 23.0 Anion Gap 9 BUN 1 L Creatinine 0.62 Estim Creat Clear Calc 37.60 Est GFR (MDRD) Af Amer 121 Est GFR (MDRD) Non-Af 100 BUN/Creatinine Ratio 1.6 L Glucose 117 H Calcium 7.7 L Magnesium 1.7 07/15/18 06:37 WBC RBC Hgb Hct MCV MCH MCHC RDW RDW Differential Plt Count MPV Neut % (Auto) Absolute Neuts (auto) Absolute Lymphs (auto) Total Counted Neutrophils % (Manual) Band Neutrophils % Lymphocytes % (Manual) Monocytes % (Manual) Eosinophils % (Manual) Metamyelocytes % Myelocytes % Promyelocytes % Blast Cells % Differential Comment Diff Path Review Platelet Estimate Hypochromasia Anisocytosis Microcytosis Sodium 139 Potassium 3.5 Chloride 106 Carbon Dioxide 25.0 Anion Gap 8 BUN 1 L Creatinine 0.57 Estim Creat Clear Calc 37.60 Est GFR (MDRD) Af Amer 135 Est GFR (MDRD) Non-Af 111 BUN/Creatinine Ratio 1.8 L Glucose 97 Calcium 7.4 L Magnesium 2.3 Medical Necessity - Tobacco Use Smoking Status: Never smoker Assessment/Plan All Active Problems Pancytopenia (Acute) Fever (Acute) Diarrhea (Acute) Neutropenic fever (Acute) 1. NF Assessment: -ANC now up to 5K. -Afebrile and hemodynamically stable. -BC negative after 48 hours. Plan: -Would d/c Granix after today's dose. -Can stop antibiotics. 2. Diarrhea. Assessment: -C diff negative and enteric pathogen panel negative. -Did not have this degree of diarrhea with cycle #1. -Slowing overall. Plan: -Try pureed diet. -Continue IVFs. -Continue octreotide and Imodium prn. -Add Lomotil scheduled. 3. Pancytopenia. Assessment: -All counts improving. Plan: -Continue GSCF as above. -Platelet count okay for medical prophylaxis DVT. 4. Metastatic pancreas cancer. Assessment: -Primary tumor the pancreas was only appreciated on endoscopic ultrasound. -Biopsy-proven lung metastases. Plan: -Will again discuss potentially continuing therapy with omission irinotecan.
[2018-07-15] MEDS: NYSTATIN 500,000 UNIT/5 ML UDC 500000 UNIT PO ×3 (10:04→18:09)
[2018-07-15] MEDS: Diphenoxylate/Atrop 1 Tablet 2 TABLET PO ×3 (10:20→18:13)
[2018-07-15] MEDS: TBO-FILGRASTIM 480 MCG/0.8 ML ML SC (10:27)
[2018-07-15] MEDS: Loperamide 2 MG Capsule PO (11:59)
--- NOTE | 2018-07-15 12:08 | PCM.PROGNOTE ---
<Beatriz He - Last Filed: 07/15/18 12:19> Patient Problems: Active and Suspected Problems Pancytopenia (Acute) Fever (Acute) Diarrhea (Acute) Neutropenic fever (Acute) Subjective: Patient seen and examined. States she feels improved although complains of continued weakness. Patient notes improvement in diarrhea. She does state she continues to have diarrhea following eating, however does not appear to be as frequent. - Physical Exam General: Alert, Oriented x3, Cooperative, No apparent distress HEENT: Atraumatic, PERRLA, EOMI, Normocephalic Neck: Supple, No JVD, Negative Carotid Bruits Lungs: Clear to auscultation, Normal air movement Cardiovascular: Regular rate, Regular Rhythm, Normal S1, Normal S2, No murmurs Abdomen: Bowel Sounds Present, Soft, Non Tender Extremities: No clubbing, No cyanosis, No edema, Capillary Refill Less than 3 Seconds Skin: No rashes, No breakdown Musculoskeletal: No Tenderness to Palpation of Joints or Extremities Neurological: Cranial nerves II-XII grossly intact, Neuro grossly intact Psych/Mental Status: Normal Affect, Appropriate Vital Signs Temp Pulse Resp BP Pulse Ox 98.6 F 90 16 115/63 98 07/15/18 11:50 07/15/18 11:50 07/15/18 11:50 07/15/18 11:50 07/15/18 11:50 Oxygen Delivery Method Room Air Weight: 135 lb 3.352 oz Body Mass Index (BMI) 26.4 Intake and Output for Last 24 Hours 07/13/18 07/14/18 07/15/18 23:59 23:59 23:59 Intake Total 3666 / 3666 1063 / 1063 1336 / 1336 Balance 3666 / 3666 1063 / 1063 1336 / 1336 Microbiology Past 72 Hours 07/12/18 14:55 Urine Culture - Final Urine, Clean Catch Presumptive E. coli 07/12/18 14:00 Blood Culture - Preliminary Blood Culture (Wb) - Port No growth in 48 hours. 07/12/18 14:32 Blood Culture - Preliminary Blood Culture (Wb) - Anticubital Right No growth in 48 hours. 07/13/18 16:25 Enteric Bacteriology - Final Stool 07/12/18 23:05 C. difficile DNA Amplification - Final Stool 07/12/18 23:05 Stool Lactoferrin - Final Stool Laboratory Tests Past 24 Hrs 07/14/18 07/14/18 07/15/18 20:15 20:15 06:37 WBC 10.0 RBC 2.94 L Hgb 9.1 L Hct 26.3 L MCV 89.5 MCH 31.0 MCHC 34.6 RDW 14.0 RDW Differential 45.8 H Plt Count 84 L MPV 10.3 Neut % (Auto) Not Reportable Absolute Neuts (auto) 5.5 Absolute Lymphs (auto) 2.69 Total Counted 100 Neutrophils % (Manual) 38 L Band Neutrophils % 17 H Lymphocytes % (Manual) 27 Monocytes % (Manual) 5 Eosinophils % (Manual) 1 Metamyelocytes % 9 H Myelocytes % 1 H Promyelocytes % 1 H Blast Cells % 1 H* Differential Comment SCAN Diff Path Review May foll Platelet Estimate ADEQUATE Hypochromasia 1+ Anisocytosis 1+ Microcytosis 1+ Sodium 137 Potassium 2.8 L Chloride 105 Carbon Dioxide 23.0 Anion Gap 9 BUN 1 L Creatinine 0.62 Estim Creat Clear Calc 37.60 Est GFR (MDRD) Af Amer 121 Est GFR (MDRD) Non-Af 100 BUN/Creatinine Ratio 1.6 L Glucose 117 H Calcium 7.7 L Magnesium 1.7 07/15/18 06:37 WBC RBC Hgb Hct MCV MCH MCHC RDW RDW Differential Plt Count MPV Neut % (Auto) Absolute Neuts (auto) Absolute Lymphs (auto) Total Counted Neutrophils % (Manual) Band Neutrophils % Lymphocytes % (Manual) Monocytes % (Manual) Eosinophils % (Manual) Metamyelocytes % Myelocytes % Promyelocytes % Blast Cells % Differential Comment Diff Path Review Platelet Estimate Hypochromasia Anisocytosis Microcytosis Sodium 139 Potassium 3.5 Chloride 106 Carbon Dioxide 25.0 Anion Gap 8 BUN 1 L Creatinine 0.57 Estim Creat Clear Calc 37.60 Est GFR (MDRD) Af Amer 135 Est GFR (MDRD) Non-Af 111 BUN/Creatinine Ratio 1.8 L Glucose 97 Calcium 7.4 L Magnesium 2.3 Medical Necessity - Tobacco Use Smoking Status: Never smoker Assessment/Plan All Active Problems Pancytopenia (Acute) Fever (Acute) Diarrhea (Acute) Neutropenic fever (Acute) 1. Acute colitis secondary to chemotherapy regimen with associated fever- ID consulted. Blood cultures show no growth so far, final pending. C. difficile negative. CT of abdomen consistent with colitis. Stool for enteric bacteriology negative. Continue IV PPI. DC antibiotics. Pur?ed diet. Continue IV fluids. Continue octreotide and Imodium as needed. Lomotil scheduled. 2. Pancytopenia secondary to chemotherapy regimen-oncology following. Patient is on Granix, DC after today's dose. WBC improved. 3. Hypokalemia-secondary to GI losses result of 1. Replaced. Trend BMP. 4. Stage IV pancreatic cancer with metastasis to lung- Follows with Dr. Hammonds. 5. GERD- Continue PPI. DVT prophylaxis-SCDs, heparin sc This patient was seen by MURPHY Sanderson under the supervision of Dr. Balbuena. <Tejinder Balbuena - Last Filed: 07/15/18 12:55> Subjective: Seen and examined. Diarrhea, abdominal pain has improved. Stool test came negative. On Imodium. Continue Sandostatin - Physical Exam General: Alert, Oriented x3, Cooperative HEENT: Atraumatic, PERRLA, EOMI, Normocephalic Neck: Supple, No JVD, Negative Carotid Bruits Lungs: Clear to auscultation, Normal air movement Cardiovascular: Regular rate, Regular Rhythm, Normal S1, Normal S2, No murmurs Abdomen: Bowel Sounds Present, Soft, Non Tender, Non-Distended Extremities: No edema, Capillary Refill Less than 3 Seconds Skin: No rashes, No breakdown Musculoskeletal: No Tenderness to Palpation of Joints or Extremities, Arthritic Changes Neurological: Cranial nerves II-XII grossly intact, Neuro grossly intact Psych/Mental Status: Normal Affect, Appropriate Vital Signs Temp Pulse Resp BP Pulse Ox 98.6 F 90 16 115/63 98 07/15/18 11:50 07/15/18 11:50 07/15/18 11:50 07/15/18 11:50 07/15/18 11:50 Oxygen Delivery Method Room Air Weight: 135 lb 3.352 oz Body Mass Index (BMI) 26.4 Intake and Output for Last 24 Hours 07/13/18 07/14/18 07/15/18 23:59 23:59 23:59 Intake Total 3666 / 3666 1063 / 1063 1336 / 1336 Balance 3666 / 3666 1063 / 1063 1336 / 1336 Microbiology Past 72 Hours 07/12/18 14:55 Urine Culture - Final Urine, Clean Catch Presumptive E. coli 07/12/18 14:00 Blood Culture - Preliminary Blood Culture (Wb) - Port No growth in 48 hours. 07/12/18 14:32 Blood Culture - Preliminary Blood Culture (Wb) - Anticubital Right No growth in 48 hours. 07/13/18 16:25 Enteric Bacteriology - Final Stool 07/12/18 23:05 C. difficile DNA Amplification - Final Stool 07/12/18 23:05 Stool Lactoferrin - Final Stool Laboratory Tests Past 24 Hrs 07/14/18 07/14/18 07/15/18 20:15 20:15 06:37 WBC 10.0 RBC 2.94 L Hgb 9.1 L Hct 26.3 L MCV 89.5 MCH 31.0 MCHC 34.6 RDW 14.0 RDW Differential 45.8 H Plt Count 84 L MPV 10.3 Neut % (Auto) Not Reportable Absolute Neuts (auto) 5.5 Absolute Lymphs (auto) 2.69 Total Counted 100 Neutrophils % (Manual) 38 L Band Neutrophils % 17 H Lymphocytes % (Manual) 27 Monocytes % (Manual) 5 Eosinophils % (Manual) 1 Metamyelocytes % 9 H Myelocytes % 1 H Promyelocytes % 1 H Blast Cells % 1 H* Differential Comment SCAN Diff Path Review May foll Platelet Estimate ADEQUATE Hypochromasia 1+ Anisocytosis 1+ Microcytosis 1+ Sodium 137 Potassium 2.8 L Chloride 105 Carbon Dioxide 23.0 Anion Gap 9 BUN 1 L Creatinine 0.62 Estim Creat Clear Calc 37.60 Est GFR (MDRD) Af Amer 121 Est GFR (MDRD) Non-Af 100 BUN/Creatinine Ratio 1.6 L Glucose 117 H Calcium 7.7 L Magnesium 1.7 07/15/18 06:37 WBC RBC Hgb Hct MCV MCH MCHC RDW RDW Differential Plt Count MPV Neut % (Auto) Absolute Neuts (auto) Absolute Lymphs (auto) Total Counted Neutrophils % (Manual) Band Neutrophils % Lymphocytes % (Manual) Monocytes % (Manual) Eosinophils % (Manual) Metamyelocytes % Myelocytes % Promyelocytes % Blast Cells % Differential Comment Diff Path Review Platelet Estimate Hypochromasia Anisocytosis Microcytosis Sodium 139 Potassium 3.5 Chloride 106 Carbon Dioxide 25.0 Anion Gap 8 BUN 1 L Creatinine 0.57 Estim Creat Clear Calc 37.60 Est GFR (MDRD) Af Amer 135 Est GFR (MDRD) Non-Af 111 BUN/Creatinine Ratio 1.8 L Glucose 97 Calcium 7.4 L Magnesium 2.3 Assessment/Plan This patient was seen in conjunction with Beatriz LAURENT. I have independently interviewed and examined the patient and reviewed pertinent history, examination findings, laboratory and plan of management. I have reviewed the note and agree with the documented findings with the few additional points. In brief, patient is admitted for acute colitis with febrile neutropenia after about 1 week off chemotherapy for stage IV pancreatic cancer. Patient had biliary stent. CT abdomen showed rectosigmoid colitis. Stool for C. difficile negative. Stool for bacteriology panel negative. Stool lactoferrin positive. Patient has diffuse GI mucositis and stomatitis. On BMX solution every 4 hours. On Imodium Patient was seen by Dr. Hammonds patient. WBC count improved to 10,000, ANC 5.5 thousand, hemoglobin 9.1/26.3. Platelet count 84,000. ARSENIO Hammonds follow-up note reviewed and appreciated. I have discussed my assessment with CORPORATE AUDITORBeatriz and orders have been reviewed. Code Visit Inpatient E&M: 81954 Subs Hosp L3
--- NOTE | 2018-07-15 14:25 | PCM.PN.ID ---
Patient Problems: Active and Suspected Problems Pancytopenia (Acute) Fever (Acute) Diarrhea (Acute) Neutropenic fever (Acute) Subjective: Feeling ok, still tired, still poor appetite, still intermittent diarrhea. No fever. - Physical Exam General: Cooperative, No apparent distress Lungs: Clear to auscultation, Normal air movement Cardiovascular: Regular rate, Regular Rhythm Abdomen: Soft, Non Tender, Non-Distended Skin: No rashes Vital Signs Temp Pulse Resp BP Pulse Ox 98.6 F 90 16 115/63 98 07/15/18 11:50 07/15/18 11:50 07/15/18 11:50 07/15/18 11:50 07/15/18 11:50 Oxygen Delivery Method Room Air Weight: 61.33 kg Body Mass Index (BMI) 26.4 Intake and Output for Last 24 Hours 07/13/18 07/14/18 07/15/18 23:59 23:59 23:59 Intake Total 3666 / 3666 1063 / 1063 1336 / 1336 Balance 3666 / 3666 1063 / 1063 1336 / 1336 Microbiology Past 72 Hours 07/12/18 14:55 Urine Culture - Final Urine, Clean Catch Presumptive E. coli 07/12/18 14:00 Blood Culture - Preliminary Blood Culture (Wb) - Port No growth in 48 hours. 07/12/18 14:32 Blood Culture - Preliminary Blood Culture (Wb) - Anticubital Right No growth in 48 hours. 07/13/18 16:25 Enteric Bacteriology - Final Stool 07/12/18 23:05 C. difficile DNA Amplification - Final Stool 07/12/18 23:05 Stool Lactoferrin - Final Stool Laboratory Tests Past 24 Hrs 07/14/18 07/14/18 07/15/18 20:15 20:15 06:37 WBC 10.0 RBC 2.94 L Hgb 9.1 L Hct 26.3 L MCV 89.5 MCH 31.0 MCHC 34.6 RDW 14.0 RDW Differential 45.8 H Plt Count 84 L MPV 10.3 Neut % (Auto) Not Reportable Absolute Neuts (auto) 5.5 Absolute Lymphs (auto) 2.69 Total Counted 100 Neutrophils % (Manual) 38 L Band Neutrophils % 17 H Lymphocytes % (Manual) 27 Monocytes % (Manual) 5 Eosinophils % (Manual) 1 Metamyelocytes % 9 H Myelocytes % 1 H Promyelocytes % 1 H Blast Cells % 1 H* Differential Comment SCAN Diff Path Review May foll Platelet Estimate ADEQUATE Hypochromasia 1+ Anisocytosis 1+ Microcytosis 1+ Sodium 137 Potassium 2.8 L Chloride 105 Carbon Dioxide 23.0 Anion Gap 9 BUN 1 L Creatinine 0.62 Estim Creat Clear Calc 37.60 Est GFR (MDRD) Af Amer 121 Est GFR (MDRD) Non-Af 100 BUN/Creatinine Ratio 1.6 L Glucose 117 H Calcium 7.7 L Magnesium 1.7 07/15/18 06:37 WBC RBC Hgb Hct MCV MCH MCHC RDW RDW Differential Plt Count MPV Neut % (Auto) Absolute Neuts (auto) Absolute Lymphs (auto) Total Counted Neutrophils % (Manual) Band Neutrophils % Lymphocytes % (Manual) Monocytes % (Manual) Eosinophils % (Manual) Metamyelocytes % Myelocytes % Promyelocytes % Blast Cells % Differential Comment Diff Path Review Platelet Estimate Hypochromasia Anisocytosis Microcytosis Sodium 139 Potassium 3.5 Chloride 106 Carbon Dioxide 25.0 Anion Gap 8 BUN 1 L Creatinine 0.57 Estim Creat Clear Calc 37.60 Est GFR (MDRD) Af Amer 135 Est GFR (MDRD) Non-Af 111 BUN/Creatinine Ratio 1.8 L Glucose 97 Calcium 7.4 L Magnesium 2.3 Medical Necessity - Tobacco Use Smoking Status: Never smoker Route of nutrition/ use of supplements: [] Nutritional Intake: [] IV Site: [] Bowie Catheter: [] - Assessment/Plan Antibiotics: [] Assessment/Plan: [] Active and Suspected Problems Fever (Acute) Diarrhea (Acute) Neutropenic fever (Acute) Neutropenic fever after chemo for pancreatic cancer - bcx neg so far. ANC has recovered. Oncology following. CT shows colitis. Port in place. Cdiff was neg; stool pcr neg. Meropenem stopped this AM by oncology. Monitoring diarrhea off of abx. Will follow
[2018-07-15 15:07] LABS: Pathologist Review Reviewed
--- NOTE | 2018-07-15 15:59 | CHAPLAIN ---
Type of Pastoral Visit ___ Initial Visit _x__ Follow-up Visit ___ On-call Visit ___ General Patient Visit ___ Spiritual Assessment ___ Family Conference ___ Bereavement ___ Rapid Response ___ Code Blue ___ Other (describe below) Pastoral Care Referral From _x__ Patient ___ Family ___ Nurse ___ Physician ___ Reproducer ___ Ring Maker ___ Other (describe below) Sacrament/Intervention _x__ Active listening ___ Anointing ___ Christianity ___ Bereavement ___ Communion _x__ Maria Dolores exploration ___ ___ Life review _x__ Prayer ___ Reconciliation ___ Sacrament of Sick _x__ Supportive presence ___ Wedding ___ Other (describe below) Pastoral Comments spouse is with patient at this meeting; spouse is asking questions about the Bible and God's plan, looking to find support in how to pray; took time to give presence and offer support
[2018-07-15] MEDS: LORazepam 1 MG Tablet PO (22:19)
[2018-07-15] MEDS: Ondansetron 8 MG Tablet PO (22:25)
[2018-07-16 03:32] VITALS: PULSE 93
[2018-07-16 04:15] VITALS: BP 115/57; PULSE 95; RESP 18; TEMP 37.2; O2SAT 94
[2018-07-16] MEDS: 0.9% NaCl VAD Flush 10 ML IV ×3 (04:28→10:32)
[2018-07-16 04:44] LABS: Hematocrit 27.1 % (37-47); Hemoglobin 9.3 g/dl (12.0-15.0); Mean Corp Hgb Conc 34.3 g/gl (32-36); Mean Corpuscular Hgb 30.8 pg (27.0-32.0); Mean Corpuscular Volume 89.7 fL (81-99); Mean Platelet Vol. 9.9 fl (6.2-12.0); Platelet Count 93 K/mm3 (150-450); RBC Distribution Width CV 14.4 % (11.6-14.6); RBC Distribution Width SD 47.1 fl (35.1-43.9); Red Blood Count 3.02 M/mm3 (4.2-5.4)
[2018-07-16 04:45] LABS: White Blood Count 38.8 K/mm3 (4.4-11.0)
[2018-07-16 04:46] LABS: Scan Indicated on CBC? Y/N YES- FLAGS NOTED
[2018-07-16 05:01] LABS: Anion Gap 10 (5-15); BUN 2 mg/dL (7-18); BUN/Creat Ratio 3.4 RATIO (10-20); Calcium,Total 7.4 mg/dL (8.5-10.1); Chloride 107 mmol/L (98-107); Creatinine, Serum 0.59 mg/dL (0.55-1.02); EST Glomerular Filtration Rate 107 mL/min (>60); Est Glom Filt Rate - Afr Amer 129 mL/min (>60); Glucose 114 mg/dL (74-106); Potassium 3.4 mmol/L (3.5-5.1); Sodium Level 140 mmol/L (136-145)
[2018-07-16 05:25] LABS: Differential Comment SCAN
[2018-07-16] MEDS: 0.9% Normal Saline 1,000 ML 100 ML IV (06:25)
[2018-07-16] MEDS: Octreotide 0.1 MG/ML ML SC (06:25)
[2018-07-16] MEDS: Ondansetron 8 MG Tablet PO (06:43)
[2018-07-16 06:56] VITALS: PULSE 71
--- NOTE | 2018-07-16 07:38 | NURSING ---
Pt is frustrated with the youth nutritional monitor, and even after education she took it off. Pt states I have been in here too long to still be wearing this I am hooked up to too much stuff to have this on.
--- NOTE | 2018-07-16 08:37 | PCM.PROGNOTE ---
Patient Problems: Active and Suspected Problems Fever (Acute) Diarrhea (Acute) Neutropenic fever (Acute) Subjective: Doing better. Two BMs last 12 hours. Still watery, but some stool. No blood. Vomited last pm after taking potassium. No fever. - Physical Exam General: Alert, Oriented x3 Oral: Moist Mucosa, - - Left later tongue ulcer smaller. Lungs: Normal air movement Cardiovascular: Regular Rhythm Abdomen: Bowel Sounds Present, Soft, Non Tender Extremities: No edema Vital Signs Temp Pulse Resp BP Pulse Ox 98.9 F 71 18 115/57 L 94 07/16/18 04:15 07/16/18 06:56 07/16/18 04:15 07/16/18 04:15 07/16/18 04:15 Oxygen Delivery Method Room Air Weight: 61.33 kg Body Mass Index (BMI) 26.4 Intake and Output for Last 24 Hours 07/14/18 07/15/18 07/16/18 23:59 23:59 23:59 Intake Total 1063 / 1063 2562 / 2562 1592 / 1592 Balance 1063 / 1063 2562 / 2562 1592 / 1592 Microbiology Past 72 Hours 07/12/18 14:55 Urine Culture - Final Urine, Clean Catch Presumptive E. coli 07/12/18 14:00 Blood Culture - Preliminary Blood Culture (Wb) - Port No growth in 48 hours. 07/12/18 14:32 Blood Culture - Preliminary Blood Culture (Wb) - Anticubital Right No growth in 48 hours. 07/13/18 16:25 Enteric Bacteriology - Final Stool Laboratory Tests Past 24 Hrs 07/15/18 07/16/18 07/16/18 06:37 04:20 04:20 WBC 38.8 H* RBC 3.02 L Hgb 9.3 L Hct 27.1 L MCV 89.7 MCH 30.8 MCHC 34.3 RDW 14.4 RDW Differential 47.1 H Plt Count 93 L MPV 9.9 Differential Comment SCAN Diff Path Review Reviewed February Sodium 140 Potassium 3.4 L Chloride 107 Carbon Dioxide 23.0 Anion Gap 10 BUN 2 L Creatinine 0.59 Estim Creat Clear Calc 37.60 Est GFR (MDRD) Af Amer 129 Est GFR (MDRD) Non-Af 107 BUN/Creatinine Ratio 3.4 L Glucose 114 H Calcium 7.4 L Medical Necessity - Tobacco Use Smoking Status: Never smoker Assessment/Plan All Active Problems Pancytopenia (Acute) Fever (Acute) Diarrhea (Acute) Neutropenic fever (Acute) 1. NF -Resolved. 2. Diarrhea. Assessment: -C diff negative and enteric pathogen panel negative. -Did not have this degree of diarrhea with cycle #1. -Continues to slow. Plan: -Okay for d/c home today. -Discussed with patient and : On d/c would recommend Lomotil 2 tabs every 6 hours alternating with Imodium 2 tabs every 6 hours so that taking one of them every 3 hours. Stop when no BM for 12 hours. 3. Pancytopenia. -Resolving. 4. Metastatic pancreas cancer. Assessment: -Primary tumor the pancreas was only appreciated on endoscopic ultrasound. -Biopsy-proven lung metastases. Plan: -Discussed potentially continuing therapy with omission irinotecan. -Patient already has appointment scheduled with me in office Wednesday 07/18.
--- NOTE | 2018-07-16 09:52 | DCINST_ITS ---
- Discharge Diagnoses Current Active Problems: Current Active and Chronic Problems Fever (Acute) Diarrhea (Acute) Neutropenic fever (Acute) Pancreatic cancer metastasized to lung (Chronic) You will use the following diet at home:: No restrictions Discharge Activity: Return to Normal Activity Call your doctor if you observe: Shortness of breath, Dizziness, Fainting spells, Chest pain Additional Instructions: Stop lomotil and imodium when no BM for 12 hours. Allergies/Adverse Reactions: Allergies Penicillins [PCN] Allergy (Verified 07/12/18 13:29) Hives Medications to take at Discharge Cholecalciferol (Vitamin D3) [D3-2000] 4,000 unit PO DAILY 07/12/18 Lorazepam [Ativan] 1 mg PO Q8H PRN PRN 07/12/18 Olanzapine 10 mg PO QHS 07/12/18 Ondansetron [Zofran] 8 mg PO Q8H PRN PRN 07/12/18 Oxycodone HCl/Acetaminophen [Percocet 5-325] 1 - 2 tablet PO Q6H PRN PRN 07/12/18 Pantoprazole Sodium [Protonix] 40 mg PO BID 07/12/18 Smooth Eye Drops 1 drop EACH EYE DAILY 07/12/18 Benzocaine/Menthol [Cepacol Sore Throat Lozenge] 1 each MM Q2H PRN PRN #30 lozenge 07/16/18 Bmx Liquid 5 ml PO Q4H PRN PRN 10 Days #60 ml 07/16/18 Diphenoxylate/Atrop [Lomotil] 2 tablet PO 4X/DAY #30 tablet 07/16/18 Loperamide [Imodium] 2 mg PO Q6H #30 capsule 07/16/18 The following prescriptions were given: Benzocaine/Menthol [Cepacol Sore Throat Lozenge] 1 each MM Q2H PRN PRN #30 lozenge PRN Reason: Sore Throat Bmx Liquid 5 ml PO Q4H PRN PRN 10 Days #60 ml PRN Reason: SORE THROAT Loperamide [Imodium] 2 mg PO Q6H #30 capsule Diphenoxylate/Atrop [Lomotil] 2 tablet PO 4X/DAY #30 tablet Primary Care Physician: Cseilia Doctor,Out of [NON-STAFF] - Please follow up with your Primary Care Physician in: PCP, 1 Week Test Results: Test results from this visit will be discussed in further detail at your follow- up appointment, if applicable. Please Follow Up With: Christiano Hammonds DO When: Follow up as scheduled, 07/18/18. Proposed Discharge Date: 07/16/18
[2018-07-16 10:04] VITALS: BP 119/66; PULSE 95; RESP 16; TEMP 37; O2SAT 96
--- NOTE | 2018-07-16 10:14 | PCM.DC.SUM ---
<Beatriz He - Last Filed: 07/16/18 10:22> Discharge Date and Diagnosis Date of Admission: 07/12/18 Date of Discharge: 07/16/18 - Primary Discharge Diagnosis Active and Suspected Problems 1. Acute colitis secondary to chemotherapy regimen with associated fever 2. Pancytopenia secondary to chemotherapy regimen 3. Hypokalemia 4. Stage IV pancreatic cancer with metastasis to lung 5. GERD 6. Stomatitis secondary to chemo - Secondary Discharge Diagnosis Chronic Problems Pancreatic cancer metastasized to lung (Chronic) Hospital Course and Treatment Imaging Results: Diagnostic Data Abdomen/Pelvis CT 07/12/18 13:35 IMPRESSION: Biliary stent in place with the pneumobilia. Diffuse fatty infiltration. Findings suggestive of a 0.7 cm x 1.1 cm rounded enhancing nodule in the right lobe of the liver as described most likely representing a vascular malformation. Diffuse atrophy of the pancreas with the dilated pancreatic duct. Findings suggestive of colitis of the rectosigmoid colon. Electronically Signed: Som aJmison MD at 15:25 EDT Tel [phone], Service support , Dr. Longo- ID Dr. Hammonds- Oncology Operations: None Procedures: None Summary of Care Provided: The patient is a 68 year old F admitted 07/12/2018 due to fever, diarrhea. 1. Acute colitis secondary to chemotherapy regimen with associated fever- ID consulted. Blood cultures show no growth. C. difficile negative. CT of abdomen consistent with colitis. Stool for enteric bacteriology negative. Antibiotics discontinued. Imodium and Lomotil alternating Q 6 hours at DC. Discontinue when no BM for 12 hours. Patient has an appointment with Dr. Hammonds on 07/18/2018. 2. Pancytopenia secondary to chemotherapy regimen-oncology following. Granix discontinued. WBC improved. 3. Hypokalemia-secondary to GI losses result of 1. Replaced. 4. Stage IV pancreatic cancer with metastasis to lung- Follows with Dr. Hammonds. 5. GERD- Continue PPI. 6. Stomatitis-BMX solution as needed at discharge. General: Alert, Oriented x3, Cooperative, No apparent distress HEENT: Atraumatic, PERRLA, EOMI, Normocephalic Neck: Supple, No JVD, Negative Carotid Bruits Lungs: Clear to auscultation, Normal air movement Cardiovascular: Regular rate, Regular Rhythm, Normal S1, Normal S2, No murmurs Abdomen: Bowel Sounds Present, Soft, Non Tender Extremities: No clubbing, No cyanosis, No edema, Capillary Refill Less than 3 Seconds Skin: No rashes, No breakdown Musculoskeletal: No Tenderness to Palpation of Joints or Extremities Neurological: Cranial nerves II-XII grossly intact, Neuro grossly intact Psych/Mental Status: Normal Affect, Appropriate Patient seen exam prior to discharge. Physical assessment as noted above. Patient stable for discharge home with follow-up with oncology and primary care physician. This patient was seen by MURPHY Sanderson under the supervision of Dr. Cedillo. Discharge Diet: No Restrictions Discharge Activity: Return to Normal Activity Call your doctor if you observe: Shortness of breath, Dizziness, Fainting spells, Chest pain Home Medications: Medications to take at Discharge Cholecalciferol (Vitamin D3) [D3-2000] 4,000 unit PO DAILY 07/12/18 Lorazepam [Ativan] 1 mg PO Q8H PRN PRN 07/12/18 Olanzapine 10 mg PO QHS 07/12/18 Ondansetron [Zofran] 8 mg PO Q8H PRN PRN 07/12/18 Oxycodone HCl/Acetaminophen [Percocet 5-325] 1 - 2 tablet PO Q6H PRN PRN 07/12/18 Pantoprazole Sodium [Protonix] 40 mg PO BID 07/12/18 Smooth Eye Drops 1 drop EACH EYE DAILY 07/12/18 Benzocaine/Menthol [Cepacol Sore Throat Lozenge] 1 each MM Q2H PRN PRN #30 lozenge 07/16/18 Bmx Liquid 5 ml PO Q4H PRN PRN 10 Days #60 ml 07/16/18 Diphenoxylate/Atrop [Lomotil] 2 tablet PO 4X/DAY #30 tablet 07/16/18 Loperamide [Imodium] 2 mg PO Q6H #30 capsule 07/16/18 Following Prescrptions Were Given to Patient: Benzocaine/Menthol [Cepacol Sore Throat Lozenge] 1 each MM Q2H PRN PRN #30 lozenge PRN Reason: Sore Throat Bmx Liquid 5 ml PO Q4H PRN PRN 10 Days #60 ml PRN Reason: SORE THROAT Loperamide [Imodium] 2 mg PO Q6H #30 capsule Diphenoxylate/Atrop [Lomotil] 2 tablet PO 4X/DAY #30 tablet Primary Care Physician: Cesilia Doctor,Out of [NON-STAFF] - Please follow up with your Primary Care Physician in: PCP, 1 Week Please Follow Up With: Christiano Hammonds DO When: Follow up as scheduled, 07/18/18. Disposition: Home Minutes spent on discharge:: 35 Patient Condition:: Stable Medical Necessity - Tobacco Use Smoking Status: Never smoker Meaningful Use Info Meaningful Use Diagnoses (Choose all that apply): None applicable <Mirian Cedillo - Last Filed: 07/16/18 15:51> Discharge Date and Diagnosis - Secondary Discharge Diagnosis Chronic Problems Pancreatic cancer metastasized to lung (Chronic) Hospital Course and Treatment Summary of Care Provided: The patient is a 68 year old F with a history of pancreatic cancer, status post pancreatic stent placement, diverticulosis status post colectomy and hypertension. She was admitted via the ED on 07/12/2018 with a complaint of fever, lethargy and diarrhea for couple of days. She was up to 101 Fahrenheit. She had a white cell count of 0.8 and sodium of 133. CT of the abdomen done showed pneumobilia and rectosigmoid colitis. She was admitted and managed for neutropenic fever due to acute colitis as well as lactic acidosis due to deyhdration from diarrhea. She was started on IV meropenem. Colitis resolved and blood cultures showed no growth C. difficile was also negative. Stool bacteriology was also negative. She was also started on Granix for neutropenia and neutropenia subsequently resolved. Patient improved, diarrhea resolved and she felt much better. She had stomatitis as well which resolved with use of nystatin swish and swallow. Patient remained stable and was discharged in 1 07/16/2018. She was discharged home with a prescription for Imodium and Lomotil. She was also given a prescription for BMX solution. She is to follow-up with her oncologist Dr. Hammonds on 07/18/2018 and is also to follow-up with PCP. Patient seen and examined prior to discharge. She felt well and had no complaints. Case was discussed at patient's bedside with Dr. Masci and patient's . She denied any fever or chills, cough or chest pain, diarrhea had resolved and she denied any vomiting or abdominal pain. 12 point review of systems otherwise negative. Labs and vitals were reviewed. o/e: Vital Signs Height 5 ft Weight: 135 lb 3.352 oz Weight in Pounds 135.2 lbs Pulse Ox 96 Temperature 98.6 F Pulse Rate 95 Respiratory Rate 16 Blood Pressure 119/66 Blood Pressure Position Semi-Fowlers [] General: Alert, Oriented x3, Cooperative, No apparent distress HEENT: Atraumatic, PERRLA, EOMI, Normocephalic Neck: Supple, No JVD, Negative Carotid Bruits Lungs: Clear to auscultation, Normal air movement Cardiovascular: Regular rate, Regular Rhythm, Normal S1, Normal S2, No murmurs Abdomen: Bowel Sounds Present, Soft, Non Tender Extremities: No clubbing, No cyanosis, No edema, Capillary Refill Less than 3 Seconds Skin: No rashes, No breakdown Musculoskeletal: No Tenderness to Palpation of Joints or Extremities Neurological: Cranial nerves II-XII grossly intact, Neuro grossly intact Psych/Mental Status: Normal Affect, Appropriate Plan as stated above. Discharged with scriptfor Immodium and Lomotil, as well as BMX solution. Follow up with PCP and oncologist. Code Visit Inpatient E&M: [id number] Disch Hosp
[2018-07-16] MEDS: NYSTATIN 500,000 UNIT/5 ML UDC 500000 UNIT PO (10:18)
[2018-07-16] MEDS: Diphenoxylate/Atrop 1 Tablet 2 TABLET PO (10:31)
[2018-07-16] MEDS: BENZOCAINE/MENTHOL 1 LOZENGE 2 LOZENGE MUCOUS MEM (10:32)
[2018-07-19 09:37] LABS: Pathologist Review Reviewed
== END 2018-07-16 11:06 | disposition home or self-care (01) | DRG 393 ==
LOC: ED 14:04 → PCU 16:25
PROVIDERS: Family Medicine; Nurse Practitioner Family; Physician Assistant; Admitting Provider Student in an Organized Health Care Education/Training Program; Emergency Provider Emergency Medicine; Family Provider Internal Medicine; PCP Internal Medicine; Referring Provider Student in an Organized Health Care Education/Training Program; Visit Provider Student in an Organized Health Care Education/Training Program
DX: K52.1 Toxic gastroenteritis and colitis (principal); D61.810 Antineoplastic chemotherapy induced pancytopenia; C25.9 Malignant neoplasm of pancreas, unspecified; E87.2 Acidosis; C78.00 Secondary malignant neoplasm of unspecified lung; K21.9 Gastro-esophageal reflux disease without esophagitis; I10 Essential (primary) hypertension; T45.1X5A Adverse effect of antineoplastic and immunosuppressive drugs, initial encounter; E87.6 Hypokalemia; K12.1 Other forms of stomatitis; Z90.49 Acquired absence of other specified parts of digestive tract; R50.81 Fever presenting with conditions classified elsewhere
CPT/HCPCS: 36415; 74177; 80048; 80053; 81001; 83605; 83630; 83735; 85025; 85027; 87040; 87086; 87088; 87493; 87506; 97802; J2185; J7030; J7040; J7050; Q9967; A4216; J1447; J2354; J2405

== ENCOUNTER → 2018-09-06 12:18 | Outpatient (CLI) | payer MEDICARE, SELFPAY ==
[2018-07-12 16:51] VITALS: BMI 26.4
[2018-09-06 13:10] LABS: Absolute Lymphocyte Count 1.25 X10^3/ul (0.83-4.51); Absolute Neutrophil Count 1.9 X10^3/uL (2.0-7.7); Basophil# 0.02 X10^3/uL; Basophil% 0.6 % (0-1); Eosinophil# 0.12 X10^3/uL; Eosinophils% 3.3 % (0-5); Hematocrit 32.5 % (37-47); Hemoglobin 10.5 g/dl (12.0-15.0); Lymphocyte # 1.25 X10^3/ul (4.0); Lymphocyte % 34.6 % (19-41); Mean Corp Hgb Conc 32.3 g/gl (32-36); Mean Corpuscular Hgb 30.6 pg (27.0-32.0); Mean Corpuscular Volume 94.8 fL (81-99); Mean Platelet Vol. 12.2 fl (6.2-12.0); Monocyte# 0.36 X10^3/uL; Neutrophil # 1.86 X10^3/uL (2.7-7.7); Neutrophil % 51.5 % (47-70); Platelet Count 237 K/mm3 (150-450); RBC Distribution Width CV 13.4 % (11.6-14.6); RBC Distribution Width SD 44.3 fl (35.1-43.9); Red Blood Count 3.43 M/mm3 (4.2-5.4); White Blood Count 3.6 K/mm3 (4.4-11.0)
[2018-09-06 13:14] LABS: POSITIVE COUNT NO; POSITIVE DIFFERENTIAL NO; POSITIVE MORPHOLOGY NO
== END ==
PROVIDERS: Family Provider Internal Medicine; PCP Internal Medicine; Referring Provider Internal Medicine Hematology & Oncology; Visit Provider Internal Medicine Hematology & Oncology
DX: C25.9 Malignant neoplasm of pancreas, unspecified (principal)
CPT/HCPCS: 85025